=== PATIENT | female | born 1970 | race Caucasian/White ===

== ENCOUNTER 2019-08-05 15:19 | Outpatient (CLI) | payer BC, SELFPAY ==
--- NOTE | ~2019-08-05 | MM_ITS ---
EXAMINATION: MM scrn [facility] implant BI w vickie HISTORY: Screening mammogram TECHNIQUE: Craniocaudal and mediolateral oblique 3-D tomosynthesis images with implant displacement a nd synthetic 2-D images were generated. Craniocaudal and mediolateral oblique views of the breasts wi thout implant displacement were obtained using full field digital mammography. CAD analysis was submi tted and interpreted. COMPARISON: 06/01/2018, 04/18/2016, 02/13/2015 bilateral implant digital screening mammogram examination s BREAST PARENCHYMAL COMPOSITION: There are scattered areas of fibroglandular density. FINDINGS: Bilateral deflated implants since 06/01/2018. Focal area of fat necrosis in the mid to lower inner right breast. There is no evidence of suspicious mass, calcification, or architectural distorti on to suggest malignancy in either breast. There has been no suspicious interval change. IMPRESSION: 1. No mammographic evidence of malignancy. 2. Recommend routine screening mammography in one year. BI-RADS Category 2: Benign finding(s). Reviewed, dictated and finalized at location A.
== END 2019-08-05 15:20 | disposition home or self-care (01) ==
PROVIDERS: PCP Family Medicine; Visit Provider Surgery Plastic and Reconstructive Surgery
DX: Z12.31 Encounter for screening mammogram for malignant neoplasm of breast (principal)
CPT/HCPCS: 77063; 77067

== ENCOUNTER 2019-09-01 12:11 | Outpatient (CLI) | payer OTHER, SELFPAY ==
[2019-09-01 13:14] LABS: Blood Urea Nitrogen 11 mg/dL (7-17); Calcium 9.6 mg/dL (8.4-10.2); Carbon Dioxide 30 mmol/L (22-30); Chloride 100 mmol/L (98-107); Estimated Glomerular Filt Rate > 60; Glucose 104 mg/dL (65-105); Potassium 3.4 mmol/L (3.4-5.0); Sodium 138 mmol/L (137-145)
== END 2019-09-01 12:12 | disposition home or self-care (01) ==
LOC: ANHSURGERY 12:15
PROVIDERS: Anesthesiology; PCP Family Medicine; Visit Provider Surgery Plastic and Reconstructive Surgery
DX: Z01.818 Encounter for other preprocedural examination (principal); Z51.81 Encounter for therapeutic drug level monitoring
CPT/HCPCS: 36415; 80048

== ENCOUNTER 2019-09-10 01:15 | Outpatient (CLI) | payer OTHER, SELFPAY ==
[2019-09-10 16:42] LABS: SARS-CoV-2 RNA PCR Negative
== END 2019-09-10 01:16 | disposition home or self-care (01) ==
LOC: ANHCOVIDDT 01:15
PROVIDERS: PCP Family Medicine; Visit Provider Surgery Plastic and Reconstructive Surgery
DX: Z01.812 Encounter for preprocedural laboratory examination (principal); Z20.828 Contact with and (suspected) exposure to other viral communicable diseases
CPT/HCPCS: 87635; C9803; U0003

== ENCOUNTER 2019-09-13 01:08 | Day surgery (SDC) | payer OTHER, SELFPAY ==
[2019-08-30 15:08] VITALS: BMI 29.1
[2019-09-13] VITALS (9 sets, daily range): BP systolic 96–143; BP diastolic 54–78; PULSE 68–92; RESP 14–20; TEMP 36.3–36.9; O2SAT 97–100
--- NOTE | 2019-09-13 00:08 | WPDANESEPP ---
Anes - Eval Pre Procedure Procedure: Operation Date: 09/13/19 07:30 Proposed Procedures p Bilateral Breast Implant Removal With Capsulectomy - Bahman Wyatt MD s Bilateral Breast Fat Grafting - Bahman Wyatt MD Date/Time: 09/13/19 00:08 Pre Op Diagnosis: hx breast augmentation Patient Data Age: 49 Gender: F Height: 5 ft 5 in Weight: 79.38 kg Allergies Allergy/AdvReac Type Severity Reaction Status Date / Time ciprofloxacin Allergy Mild RASH Verified 09/06/19 08:33 adhesive Allergy Unknown BLISTERS Verified 09/06/19 08:33 miconazole Allergy Unknown SKIN Verified 09/06/19 08:33 BURNING sulfamethizole Allergy Unknown Rash Verified 09/06/19 08:33 trimethoprim Allergy Unknown Rash Verified 09/06/19 08:33 MONOSTAT Allergy Intermediate Skin burn, Uncoded 09/06/19 08:33 rash. Home Medications Medication Instructions Recorded Confirmed Type furosemide 40 mg tablet 40 mg PO QAM #30 tablet 06/23/19 08/30/19 Rx zolpidem 5 mg tablet 5 mg PO DAILY #30 tablet 06/23/19 08/30/19 Rx tramadol 50 mg tablet 50 mg PO Q6H PRN #60 tablet 08/08/19 08/30/19 Rx estradiol 1 mg PO DAILY 08/30/19 08/30/19 History docusate sodium 100 mg capsule 100 mg PO DAILY #14 cap 09/06/19 Rx ondansetron HCl 4 mg tablet 4 mg PO Q8H #28 tablet 09/06/19 Rx oxycodone-acetaminophen 5 mg-325 1 tablet PO Q6H PRN #15 tablet 09/07/19 09/07/19 Rx mg tablet Patient hx anesthesia problems: none Family hx anesthesia problems: none PMFSH Past Medical History Medical History (Updated 09/13/19 @ 00:11 by Praveen Jose CRNA) Abnormal uterine bleeding (AUB) Burning with urination Encounter for cosmetic surgery Fibroid uterus MVP (mitral valve prolapse) Surgical History Surgical History H/O hysterectomy with oophorectomy History of breast augmentation Status post lumbar surgery Family History Family History Other Diabetes mellitus Family history of alcoholism Family history of arthritis Family history of cardiovascular disease Hypertension Social History Social History Smoking end date: 03/30/00 Alcohol intake: current Exam Day of Procedure 09/13/19 00:08 Patient weight: normal
--- NOTE | 2019-09-13 06:35 | WPDANESEFPP ---
Anes - Eval Final PreProcedure Day of Procedure 09/13/19 06:35 Patient weight: overweight Heart: regular rate and rhythm Lungs: clear to auscultation Airway: Mallampati scale class II Neurological: alert and oriented Last oral intake: >/= 8 hours ASA classification: II Emergent: no Anesthetic plan: proceed Anesthesia type and monitoring: general LMA and standard monitoring Informed Consent: The patient's anesthetic plan and its attendant risks and benefits were discussed with the patient/family/POA. Questions were solicited and answers provided to the satisfaction of the patient/family/POA.
[2019-09-13] MEDS: LACTATED RINGERS 1,000 ML 30 ML IV CONT ×2 (06:40→09:51)
[2019-09-13 06:44] LABS: Urine Cotinine NEGATIVE
--- NOTE | 2019-09-13 06:55 | WPDHPUPDATE1 ---
History and Physical Update Update Date/Time: 09/13/19 06:55 History and Physical has been reviewed, including an updated exam of the patient. There are NO changes in the patient's condition. She would like to send the implant capsule. She understands there will be pathology / facility charges for this at her expense. Further she understands I cannot gurantee total capsule removal. Risks, benefits, and alternatives have been discussed and questions answered. Patient agrees to proceed with procedure.
[2019-09-13] MEDS: ceFAZolin 2 GM/D5W 50 ML 2 GM/50 ML BAG IVPB (07:39)
[2019-09-13] MEDS: LIDO 1%/EPINEPHRINE 1:100,000 20 ML VIAL 80 ML INFILTRATE (08:43)
--- NOTE | 2019-09-13 09:56 | PM.PROC ---
Procedure Note - Detailed Date of procedure: 09/13/19 Pre-op diagnosis: hx breast augmentation Post-op diagnosis: same Procedure performed: Bilateral breast implant removal, capsulectomy, fat grafting bilateral breast Description of procedure: Patient was marked in the preoperative holding area with her verification. She was taken to the operating room placed supine on the operating room table. Anesthesia was provided by anesthesiology and prepped and draped in a standard sterile fashion. Surgical time-out was taken. I used a 18 gauge to make puncture wounds for the planned tumescent. I tumesced the abdomen and flanks as had been determined preoperatively. Using a 3 mm multi hole suction cannula into a gravity separation device I completed suction lipectomy for around 600 cc. This was in multiple planes and passes to ensure good contour. I then proceeded with applying for separation of the adipose tissue. Once I had good separation I took the central portion discarding the inferior and superior aspect. This placed in 10 cc syringes and using 3.1 mm cannula I injected bilateral breast. This was through 18 gauge puncture sites. Initially placed around half the volume prior to removing the implants and after that I did placed remaining volume when she was sitting to verify contour. I had also done a field block of the breast using 1% lidocaine and 0.25% Marcaine with epinephrine bilateral. This was a total of 60 cc. A 15 blade used to excise the central portion of the IMF scar. I continued to the capsules identified and I dissected around nearly the entire capsule except for adherent spots to prevent injury the pectoralis major. This was prepectoral. I then removed this capsule. This was a textured implant removed. I saw nothing abnormal during this. At this point I placed the remainder of the fat in a sitting position. This was a total volume of 120 cc of adipose tissue per breast in multiple planes and passes making sure good contour. I irrigated with 3 L saline on TUR tubing total. I verified strict hemostasis. I placed 15 William drains bilateral which were sutured into place with 3-0 nylon. She had a possible allergy to Vicryl in the past and as such we closed in multiple layers using 3-0 Monocryl followed by running subcuticular 4-0 Monocryl and tissue glue. She tolerated the procedure well. She was taken to PACU without difficulty. All instrument sponge counts were correct at the end of the case. Anesthesia: GLMA Surgeon: Bahman Wyatt MD Estimated blood loss (mL): 10 Drains: Yes ( bilateral 15 William) Packing: No Pathology: yes ( bilateral breast capsules) Complications: No immediate complications Condition: stable Disposition: PACU Findings: Bilateral textured implants. I completed removal of the majority of the capsule bilateral. This was sent to pathology. Nothing abnormal identified. Suction lipectomy was completed from the abdomen flanks. These gravity separation and I was able to inject 120 cc of good adipose tissue to bilateral breast.
[2019-09-13] MEDS: ONDANSETRON INJ 4 MG/2 ML VIAL IV PUSH (11:24)
== END 2019-09-13 12:12 | disposition home or self-care (01) ==
PROVIDERS: PCP Family Medicine; Visit Provider Surgery Plastic and Reconstructive Surgery
PROC: 0HPT0JZ Removal of Synthetic Substitute from Right Breast, Open Approach (ICD-10-PCS; CPT 19371; principal; 2019-09-13 07:30)
PROC: (CPT 15769; 2019-09-13 07:30)
DX: Z45.812 Encounter for adjustment or removal of left breast implant (principal); Z45.811 Encounter for adjustment or removal of right breast implant; I34.1 Nonrheumatic mitral (valve) prolapse
CPT/HCPCS: 19371; 15771; 15772 ×11; 36415; 80307; 88304; 88305; A9270; J0171; J0690; J1100; J2250; J2405; J2704; J3010; J7120

== ENCOUNTER → 2019-12-19 11:18 | Outpatient (CLI) | payer BC, SELFPAY ==
--- NOTE | ~2019-12-19 | US_ITS ---
EXAMINATION: US thyroid EXAM DATE: 12/19/2019 11:37 INDICATION: Thyroid nodules. TECHNIQUE: Multiple grayscale and Doppler images of the thyroid were obtained (by a technologist who performed the scan) and subsequently reviewed. Individual nodules and recommendations may be reporte d in accordance with TI-RADS system as designated by the 2017 ACR White Paper TI-RADS committee. Comp leticia is made to prior examination from 09/03/2016. FINDINGS: The right thyroid lobe measures 4.9 x 1.5 x 1.4 cm, the left measuring 5.3 x 1.6 x 1.4 cm. Mildly het erogeneous thyroid echogenicity. Several thyroid nodules, largest in the left thyroid lobe superior p ole measuring 1.4 x 0.8 x 1.2 centimeters, solid (2 points), isoechoic (1 point), wider than tall, sm ooth margin, without echogenic foci, category TR3 for this nodule. This nodule measured 1.2 x 1.1 x 1 .1 cm in 2017, within technologist variation for acquisition. The others are 3 mm or less in size, no t clinically significant. IMPRESSION: Mild thyromegaly. Stable nodules. Return to clinical follow-up and if additional palpable abnormality develops a repeat scan. Reviewed, dictated and finalized at location B.
== END ==
PROVIDERS: PCP Physician Assistant Medical; Visit Provider Physician Assistant Medical
DX: E07.89 Other specified disorders of thyroid (principal); E04.9 Nontoxic goiter, unspecified
CPT/HCPCS: 76536

== ENCOUNTER → 2020-08-30 07:11 | Outpatient (CLI) | payer BC, SELFPAY ==
--- NOTE | ~2020-08-30 | MM_ITS ---
EXAMINATION: MM screening [facility] BI w vickie HISTORY: Screening TECHNIQUE: Craniocaudal and mediolateral oblique 3-D tomosynthesis images were obtained and synthetic 2-D images were generated. CAD analysis was submitted and interpreted. COMPARISON: Comparison to multiple prior studies sequentially, with oldest reviewed study dated 05/2013. BREAST PARENCHYMAL COMPOSITION: There are scattered areas of fibroglandular density. FINDINGS: There is no evidence of suspicious mass, calcification, or architectural distortion to sugg est malignancy in either breast. There has been no suspicious interval change. IMPRESSION: 1. No mammographic evidence of malignancy. 2. Recommend routine screening mammography in one year. BI-RADS Category 1: Negative Reviewed, dictated and finalized at location A.
== END ==
PROVIDERS: Visit Provider Obstetrics & Gynecology
DX: Z12.31 Encounter for screening mammogram for malignant neoplasm of breast (principal)
CPT/HCPCS: 77063; 77067

== ENCOUNTER → 2020-09-17 11:58 | Outpatient (CLI) | payer BC, SELFPAY ==
--- NOTE | ~2020-09-17 | XR_ITS ---
XR foot LT 2V DATE: 09/17/2020 12:09 INDICATION: Left foot pain TECHNIQUE: AP and lateral views COMPARISON: None FINDINGS: There is slight plantar and mild posterior calcaneal enthesopathy. Mild joint space narrowing at the first metatarsophalangeal joint. No fracture, dislocation, periosteal reaction or bone destruction. IMPRESSION: Calcaneal enthesopathy Mild first metatarsophalangeal joint joint space narrowing Reviewed, dictated and finalized at location A.
== END ==
PROVIDERS: PCP Physician Assistant Medical; Visit Provider Physician Assistant Medical
DX: M79.672 Pain in left foot (principal); M77.32 Calcaneal spur, left foot
CPT/HCPCS: 73620

== ENCOUNTER → 2020-10-11 15:06 | Outpatient (CLI) | payer BC, SELFPAY ==
--- NOTE | ~2020-10-11 | XR_ITS ---
EXAMINATION: XR elbow LT min 3V DATE: 10/11/2020 15:41 INDICATION: Left elbow injury. TECHNIQUE: 4 views of left elbow were obtained. COMPARISON: None. FINDINGS: Bone alignment is normal. No fracture. There is mild elbow joint osteoarthritis. No elbow j oint effusion. IMPRESSION: 1. Mild elbow joint osteoarthritis. Reviewed, dictated and finalized at location A.
--- NOTE | ~2020-10-11 | XR_ITS ---
EXAMINATION: XR forearm LT 2V DATE: 10/11/2020 15:41 INDICATION: Left elbow injury. TECHNIQUE: 2 views of left forearm were obtained. COMPARISON: None. FINDINGS: Bone alignment is normal. No fracture. Joint spaces are well maintained. There is no elbow joint effusion. IMPRESSION: 1. Normal left forearm. Reviewed, dictated and finalized at location A. IMPRESSION: 1. Normal left forearm.
== END ==
PROVIDERS: PCP Family Medicine; Visit Provider Pediatrics
DX: M19.022 Primary osteoarthritis, left elbow (principal); M79.632 Pain in left forearm; W01.0XXA Fall on same level from slipping, tripping and stumbling without subsequent striking against object, initial encounter
CPT/HCPCS: 73080; 73090

== ENCOUNTER → 2021-11-07 07:06 | Outpatient (CLI) | payer BC, SELFPAY ==
--- NOTE | ~2021-11-07 | MM_ITS ---
EXAMINATION: MM screening [facility] BI w vickie HISTORY: Screening mammogram TECHNIQUE: Craniocaudal and mediolateral oblique 3-D tomosynthesis images were obtained and synthetic 2-D images were generated. CAD analysis was submitted and interpreted. COMPARISON: 08/30/2020, 08/05/2019, 06/01/2018 BREAST PARENCHYMAL COMPOSITION: There are scattered areas of fibroglandular density. FINDINGS: Oil cysts are noted bilaterally. There is no suspicious mass, calcification, or architectur al distortion to suggest malignancy in either breast. There has been no suspicious interval change. IMPRESSION: 1. No mammographic evidence of malignancy. 2. Recommend routine screening mammography in one year. BI-RADS Category 2: Benign finding(s). Reviewed, dictated and finalized at location A.
== END ==
PROVIDERS: PCP Physician Assistant Medical; Visit Provider Physician Assistant Medical
DX: Z12.31 Encounter for screening mammogram for malignant neoplasm of breast (principal)
CPT/HCPCS: 77063; 77067

== ENCOUNTER → 2021-11-28 11:40 | Outpatient (CLI) | payer BC, SELFPAY ==
--- NOTE | ~2021-11-28 | US_ITS ---
EXAMINATION: US thyroid DATE: 11/28/2021 11:58 INDICATION: Nontoxic goiter, unspecified. TECHNIQUE: Multiple ultrasound images of the thyroid were obtained. COMPARISON: Thyroid ultrasound 12/19/2019, 09/03/16 FINDINGS: The right thyroid lobe measures 5.8 x 1.8 x 1.6 cm. The left thyroid lobe measures 5.6 x 1.7 x 1.7 c m. The thyroid demonstrates heterogeneous hypoechogenicity. Vascularity is increased. IMPRESSION: 1. Heterogeneous, hypervascular thyroid, likely chronic lymphocytic (Sam) thyroiditis. Reviewed, dictated and finalized at location A.
== END ==
PROVIDERS: PCP Physician Assistant Medical; Visit Provider Physician Assistant Medical
DX: E04.9 Nontoxic goiter, unspecified (principal)
CPT/HCPCS: 76536

== ENCOUNTER 2024-04-06 06:12 | Day surgery (SDC) | payer OTHER, SELFPAY ==
[2024-03-17 14:43] VITALS: BMI 23.3
[2024-04-06] VITALS (9 sets, daily range): BP systolic 107–120; BP diastolic 58–70; PULSE 60–85; RESP 14–20; TEMP 36.2–37.3; O2SAT 100; BMI 24.7
[2024-04-06] MEDS: LACTATED RINGERS 1,000 ML 30 ML IV CONT ×2 (08:00→11:40)
--- NOTE | 2024-04-06 08:43 | WPDHPUPDATE1 ---
History and Physical Update Update Date/Time: 04/06/24 08:43 History and Physical has been reviewed, including an updated exam of the patient. Correction of H&P. Her labia minora tear is on the left and she is concerned of asymmetry with the repair and would like to proceed bilateral. Will proceed with bilateral augmentation mammaplasty and bilateral labioplasty. She and her state to proceed at my discretion if any concerns. Risks, benefits, and alternatives have been discussed and questions answered. Patient agrees to proceed with procedure.
--- NOTE | 2024-04-06 08:45 | SUR.PREOP ---
500CC IVF BOLUS INFUSING PER ORDER. FEMALE STAFF IN ROOM WHILE DR CARRANZA MARKED PT. PT'S SPOUSE ALSO PRESENT PER PT REQUEST. PT AND DR DISCUSSED PROCEDURE. CHANGED TO BILAT LABIAPLASTY
--- NOTE | 2024-04-06 08:46 | P.PNAN_ITS ---
Anes - Initial Pre Proc Eval Procedure: Operation Date: 04/06/24 08:45 Proposed Procedures p Bilateral Breast Augmentation Mammoplasty - Bahman Wyatt MD s Right Labiaplasty - Bahman Wyatt MD Date/Time: 04/06/24 08:46 Surgeon: Bahman Wyatt MD Pre Op Diagnosis: Micromastia, Hypertrophy of Labia Minora Patient Data Age: 54 Gender: F Height: 1.63 m Weight: 65.3 kg Last Vital Signs Temp 37.3 C 04/06/24 08:09 Pulse 60 04/06/24 08:09 Resp 16 04/06/24 08:09 BP 107/69 04/06/24 08:09 Pulse Ox 100 04/06/24 08:09 O2 Del Method Room Air 04/06/24 08:09 Allergies Allergy/AdvReac Type Severity Reaction Status Date / Time ciprofloxacin Allergy Mild RASH Verified 04/06/24 07:47 tioconazole (From Monistat 1 Allergy Mild Rash Verified 04/06/24 07:47 (tioconazole)) adhesive Allergy Unknown BLISTERS Verified 04/06/24 07:47 miconazole Allergy Unknown SKIN Verified 04/06/24 07:47 BURNING sulfamethizole Allergy Unknown Rash Verified 04/06/24 07:47 trimethoprim Allergy Unknown Rash Verified 04/06/24 07:47 Home Medications ?Medication ?Instructions ?Recorded ?Confirmed ?Type ergocalciferol (vitamin D2) 1,250 50,000 unit PO MONTHLY 10/20/23 04/06/24 History mcg (50,000 unit) capsule (Vitamin D2) estradiol 1.25 mg/1.25 gram (0.1 1.25 mg topical DAILY 10/20/23 04/06/24 History %) transdermal gel packet testosterone cypionate 200 mg/mL 200 mg subcut MONTHLY 10/20/23 03/17/24 History intramuscular oil tirzepatide 5 mg/0.5 mL 5 mg (0.5 mL) subcut WEEKLY #2 mL 01/06/24 03/17/24 Rx subcutaneous pen injector (Micunstephane) zolpidem 5 mg tablet 5 mg PO DAILY #30 tabs 01/12/24 04/06/24 Rx tramadol 50 mg tablet 50 mg PO Q6H PRN pain #60 tabs 03/09/24 04/06/24 Rx Patient hx anesthesia problems: none Family hx anesthesia problems: none Results Review: All pre-operative results and documents have been reviewed as part of the pre- operative evaluation. [facility] Past Medical History Medical History (Updated 01/29/24 @ 09:17 by Shara Acuna APRN) Dysuria BMI 27.0-27.9,adult BMI 28.0-28.9,adult BMI 29.0-29.9,adult Fibroid uterus Abnormal uterine bleeding (AUB) MVP (mitral valve prolapse) Encounter for cosmetic surgery Burning with urination Surgical History Surgical History Status post lumbar surgery H/O hysterectomy with oophorectomy History of breast augmentation Family History Family History Father Hypertension Cancer Mother No problems noted. Sibling Other Diabetes mellitus Family history of alcoholism Family history of arthritis Family history of cardiovascular disease Social History Social History Smoking status: Former smoker Tobacco type: cigarettes Second hand tobacco smoke exposure: No Smoking end date: 03/30/00 Alcohol intake: current Substance use: never Substance use type: does not use Lack of Transportation: No Lack of Food: Never True Current Housing: I Have Housing Concerned About Future Housing: No Difficulty Paying Gas/Electric Bills: No Difficulty Paying for Meds: No Currently Unemployed: No Education: Associate Degree Difficulty w/ Childcare or Family Care: No Living arrangements: with family Occupation/Education: occupation 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 Informed Consent: The patient's anesthetic plan and its attendant risks and benefits were discussed with the patient/family/POA. Questions were solicited and answers provided to the satisfaction of the patient/family/POA.
--- NOTE | 2024-04-06 08:50 | W.PM.PROC2 ---
Procedure Note - Detailed Date of Procedure 04/06/24 Pre-op Diagnosis Micromastia, Hypertrophy of Labia Minora Post-op Diagnosis Same Procedure Performed 1. Bilateral augmentation mammaplasty 2. Bilateral labioplasty (left labia minora repair) Surgeon Bamhan Wyatt MD Anesthesia General Findings Bilateral Steve Cedeno SoftTouch 400cc Subfascial Right - REF# SSLP-400 SN [id number] Left - REF# [id number] SN [id number] Description of Procedure She is here today for bilateral breast augmentation and labioplasty. She has a left labia minora tear and would like to repair; however, she has had significant concern of asymmetry and would like to complete a symmetry procedure on the right. Previously and again today the risks, benefits, alternatives were discussed in extensive detail. I wanted her to be very realistic about the risks involved as well as expectations. We discussed aftercare and what to monitor for. Made sure answered all of her questions to her satisfaction today and consent was obtained. Marked in the preoperative holding area with their verification. The patient was taken to the operating room placed supine on the operating table. Anesthesia was provided by anesthesiology. A surgical time-out was taken. Breast We cleansed the skin and 1% lidocaine and 0.25% Marcaine with epinephrine was used anesthetize as a field block. She was prepped and draped in a standard sterile fashion. Tegaderm nipple Lees were placed. A 15 blade used to make an incision along the inframammary fold. Dissection was continued at 45 degree angle until the chest wall as identified. I elevated a subfascial pocket (which was intact) in the appropriate dimensions based on our preoperative planning for the implant. I then copiously irrigated with saline solution and verified a strict hemostasis. Next the use a triple antibiotic and Betadine containing solution to irrigate the pocket. I washed my gloves with the triple antibiotic and Betadine solution. We washed the implant immediately upon opening it with this solution and only opened it when we needed it. I used implant funnel and no-touch technique. The implant was introduced into the pocket using the funnel. Having verified positioning of the implant this was closed using 2-0 PDS followed by 3-0 Monocryl in a running subcuticular 4-0 Monocryl followed by tissue glue. Labioplasty She was placed in stirrups and prepped and draped in a standard sterile fashion. 1% lidocaine and 0.25% Marcaine with epi were used to anesthetize. I sharply excised the tear and some excess labia minora on the left labia and verified strict hemostasis. I closed with 3-0 Monocryl and 4-0 Chromic. On the right I excised a wedge to match the contralateral side (there was significant anatomy variation between sides). Repaired in the same manner. Fluffs and surgical bra were placed. Patient was awoke and taken to PACU without difficulty. All instrument sponge counts were correct at the end of the case. Estimated Blood Loss 30 Drains No Packing No Pathology None sent Complications No immediate complications Condition Stable Disposition PACU
[2024-04-06] MEDS: ceFAZolin SODIUM 2 GM/20 ML SW SYRINGE IV PUSH (09:10)
[2024-04-06] MEDS: LIDO 1%/EPINEPHRINE 1:100,000 10 ML VIAL 30 ML INFILTRATE (09:16)
[2024-04-06] MEDS: BUPivacaine HCL 0.25% PF 30 ML VIAL INFILTRATE (09:16)
[2024-04-06] MEDS: TRANEXAMIC ACID 1,000 MG/10 ML AMPUL 1000 MG IV PUSH (09:50)
[2024-04-06] MEDS: NACL 0.9% IRRIG POUR BOTTLE 900 ML, GENTAMICIN SULFATE INJ 160 MG, ceFAZolin 2 GM, POVI... IRRIGATION (09:51)
[2024-04-06] MEDS: BUPIVACAINE/EPINEPHRINE 0.25% 10 ML VIAL INFILTRATE (10:24)
[2024-04-06] MEDS: LIDOCAINE 1% LOCAL INJ 10 ML VIAL INFILTRATE (10:38)
[2024-04-06] MEDS: fentaNYL CITRATE INJ (*CRX) 100 MCG/2 ML VIAL 25 MCG IV PUSH ×8 (11:22→11:53)
--- NOTE | 2024-04-06 11:58 | WPDANESPN ---
Anes - Prog Note Post-Op Date/Time: 04/06/24 11:58 Cardiovascular status: normal Respiratory status: normal Airway patency: baseline Mental status: baseline Post-Op hydration status: normal Vital Signs: Last Vital Signs Temp 36.2 C L 04/06/24 10:52 Pulse 79 04/06/24 11:45 Resp 18 04/06/24 11:45 BP 114/65 04/06/24 11:45 Pulse Ox 100 04/06/24 11:45 O2 Del Method Room Air 04/06/24 11:45 O2 Flow Rate 8 04/06/24 11:15 Pain Score (VAS): 2 I/O: Intake & Output 04/05/24 04/06/24 04/06/24 23:59 07:59 15:59 Intake Total 0 Balance 0 Post-procedural complaints: none Patient Feedback: Patient satisfied with anesthetic care. Other Findings: Patient vital signs back to baseline. Patient denies nausea and vomiting. Patient's pain under control. Patient OK for discharge.
[2024-04-06] MEDS: oxyCODONE HCL (*CRX) 5 MG TAB IR PO (12:15)
== END 2024-04-06 12:52 ==
PROVIDERS: PCP Family Medicine; Visit Provider Surgery Plastic and Reconstructive Surgery
PROC: (CPT 19325; principal; 2024-04-06 08:45)
PROC: (CPT 19325; 2024-04-06 08:45)
DX: Z41.1 Encounter for cosmetic surgery (principal); N64.82 Hypoplasia of breast; N90.60 Unspecified hypertrophy of vulva
CPT/HCPCS: 19325; 56620

== ENCOUNTER 2024-04-19 20:26 | Day surgery (SDC) | payer BC, SELFPAY ==
[2024-04-19] VITALS (7 sets, daily range): BP systolic 98–115; BP diastolic 50–67; PULSE 70–86; RESP 14–19; TEMP 36.4; O2SAT 100
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
--- NOTE | 2024-04-19 20:40 | P.HP_ITS ---
H&P: HPI History of Present Illness Date/Time: 04/19/24 20:40 Chief Complaint: Breast pain Narrative: She underwent augmentation mastopexy on 04/06/2024. Postoperatively has done well; however, this evening states she began to develop left breast pain and swelling. She wasn't doing anything at the time. No specific events. No fevers or chills. No nausea or vomiting. No shortness of breast. No calf tenderenss. Her last mean was at 11:30am, 5:30pm coffee. They live approximally 1 hour away and came immediately for evaluation. Review of Systems Review of Systems: All systems reviewed & are unremarkable except as noted in HPI and below PMFSH Past Medical History Medical History Breast hematoma Anxiety Thyroid enlargement Hyperlipidemia Dysuria BMI 27.0-27.9,adult BMI 28.0-28.9,adult BMI 29.0-29.9,adult Fibroid uterus Abnormal uterine bleeding (AUB) MVP (mitral valve prolapse) Encounter for cosmetic surgery Burning with urination Surgical History Surgical History Status post lumbar surgery H/O hysterectomy with oophorectomy History of breast augmentation Family History Family History Father Hypertension Cancer Mother No problems noted. Sibling Other Diabetes mellitus Family history of alcoholism Family history of arthritis Family history of cardiovascular disease Social History Social History Smoking status: Former smoker Tobacco type: cigarettes Second hand tobacco smoke exposure: No Smoking end date: 03/30/00 Alcohol intake: current Substance use: never Substance use type: does not use Lack of Transportation: No Lack of Food: Never True Current Housing: I Have Housing Concerned About Future Housing: No Difficulty Paying Gas/Electric Bills: No Difficulty Paying for Meds: No Currently Unemployed: No Education: Associate Degree Difficulty w/ Childcare or Family Care: No Living arrangements: with family Occupation/Education: occupation 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 Gender identity (if verbalized by the patient): Female Spiritual care concerns: No Meds Home Medications and Allergies Home Medications ?Medication ?Instructions ?Recorded ?Confirmed ?Type ergocalciferol (vitamin D2) 1,250 50,000 unit PO MONTHLY 10/20/23 04/06/24 History mcg (50,000 unit) capsule (Vitamin D2) estradiol 1.25 mg/1.25 gram (0.1 1.25 mg topical DAILY 10/20/23 04/06/24 History %) transdermal gel packet testosterone cypionate 200 mg/mL 200 mg subcut MONTHLY 10/20/23 03/17/24 History intramuscular oil tirzepatide 5 mg/0.5 mL 5 mg (0.5 mL) subcut WEEKLY #2 mL 01/06/24 03/17/24 Rx subcutaneous pen injector (Beverley) tramadol 50 mg tablet 50 mg PO Q6H PRN pain #60 tabs 03/09/24 04/06/24 Rx zolpidem 5 mg tablet 5 mg PO DAILY #30 tabs 04/07/24 Rx Allergies Allergy/AdvReac Type Severity Reaction Status Date / Time ciprofloxacin Allergy Mild RASH Verified 04/06/24 07:47 tioconazole (From Monistat 1 Allergy Mild Rash Verified 04/06/24 07:47 (tioconazole)) adhesive Allergy Unknown BLISTERS Verified 04/06/24 07:47 miconazole Allergy Unknown SKIN Verified 04/06/24 07:47 BURNING sulfamethizole Allergy Unknown Rash Verified 04/06/24 07:47 trimethoprim Allergy Unknown Rash Verified 04/06/24 07:47 Exam Narrative: Alert & Oriented NOD Respiratory unlabored Right breast is healing well. No signs of infection. No hematoma. No seroma. Good color and capillary refill. Left breast with significant swelling / fullness. No calf tenderness. Negative Jewel's Assessment and Plan Assessment and plan (1) History of breast augmentation: Code(s): Z98.82 - Breast implant status Status: Acute Assessment and Plan: She appears to have a left breast hematoma after previous augmentation mastopexy. Would like to proceed with left breast washout with possible implant exchange. Risks, benefits, alternatives were discussed in extensive detail. I want to be very realistic about the risks involved as well as expectations. Reviewed consent in detail. Discussed aftercare and what to monitor for. Made sure I answered all questions answered to satisfaction and consent obtained. (2) History of mastopexy: Code(s): Z98.890 - Other specified postprocedural states Status: Acute
--- NOTE | 2024-04-19 20:52 | WPDHPUPDATE1 ---
History and Physical Update Update Date/Time: 04/19/24 20:52 History and Physical has been reviewed, including an updated exam of the patient. There are NO changes in the patient's condition. Risks, benefits, and alternatives have been discussed and questions answered. Patient agrees to proceed with procedure.
[2024-04-19] MEDS: LIDO 1%/EPINEPHRINE 1:100,000 50 ML VIAL 15 ML INFILTRATE (20:53)
[2024-04-19] MEDS: ceFAZolin SODIUM 1 GM VIAL 2 GM IV PUSH (20:53)
[2024-04-19] MEDS: BUPivacaine HCL 0.25% PF 30 ML VIAL INFILTRATE (20:53)
--- NOTE | 2024-04-19 20:54 | W.PM.PROC2 ---
Procedure Note - Detailed Date of Procedure 04/19/24 Pre-op Diagnosis Hematoma Washout of Breast Post-op Diagnosis Same Procedure Performed Left breast washout / implant exchange Surgeon Bahman Wyatt MD Anesthesia General Findings Left breast hematoma. 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 Estimated 450cc old blood Removed previous left implant. Replaced with new implant. Left: Steve Cedeno SoftTouch 400cc Ref# [id number] Description of Procedure Preoperatively the risks, benefits, alternatives were discussed in extensive detail. I wanted to be very realistic about the risks involved as well as expectations. I was clear about how we could actually make her worse. Answered all questions to satisfaction. Voiced a clear understanding. Consent obtained. She was taken the operating room placed supine on the operating room table. Anesthesia provided by anesthesiology and prepped and draped in a standard sterile fashion. Surgical time-out was taken. 1% lidocaine and 0.25% Marcaine with epinephrine was used to provide a field block. Tegaderm nipple merritt were placed. Fifteen blade used to excise the previous left IMF scars. Dissection was continued until the implant was identified and removed. I then copiously irrigated with 3 L of saline solution on TUR tubing. Verified strict hemostasis. I then irrigated with Phase One containing solution. Using a no-touch technique and a Wright funnel the implant was introduced into the pocket. This was closed with 2-0 PDS followed by 3-0 Monocryl and a running subcuticular 4-0 Monocryl followed by tissue glue. Dressings were placed. She was woken taken to the PACU without difficulty. All instrument sponge counts were correct at the end of the case. Estimated Blood Loss 20 Drains No Packing No Pathology None sent Complications No immediate complications Condition Stable Disposition PACU (Will monitor in PACU prior to discharge.)
[2024-04-19] MEDS: LACTATED RINGERS 1,000 ML 30 ML IV CONT (21:48)
[2024-04-19] MEDS: fentaNYL CITRATE INJ (*CRX) 100 MCG/2 ML VIAL 25 MCG IV PUSH ×2 (22:13→22:30)
[2024-04-19] MEDS: oxyCODONE HCL (*CRX) 5 MG TAB IR PO (22:58)
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
--- OUTSIDE RECORDS SUMMARY | 2024-04-21 20:25 | XMS_ITS | Referral Summary ---
Author Organization [facility] Address [address] [place] [address] Care Team Providers Care Executive Personal Assistant Name Role Phone Franck Cuadra MD Primary Care Provider [phone] Ellie Maloney FINANCIAL ANALYSIS CONSULTANT-JOURNEYMAN WELDER Unavailable [phone] Source Comments [facility],non-owned Affiliates and Associated Physician Practices is amultiple site organization consisting of ambulatory clinics and hospital sitesin [place], [place], [place] and [place]. This disclosure is being madepursuant to the Care Everywhere program and may not contain all information available regarding this patient. Last updated 17.[facility] Encounters Date Type Department Care Team Description 03/31/2024 Orders Only [facility] - Urology [address], [address] [place] [address] Ellie Maloney, FINANCIAL ANALYSIS CONSULTANT-JOURNEYMAN WELDER 03/29/2024 Refill [facility] - Urology [address] [place] [address] Ellie Maloney, FINANCIAL ANALYSIS CONSULTANT-JOURNEYMAN WELDER Refill Request 03/21/2024 Orders Only [facility] - Urology [address] [place] [address] Ellie Maloney, FINANCIAL ANALYSIS CONSULTANT-JOURNEYMAN WELDER Recurrent UTI 03/10/2024 Travel 03/10/2024 2:40 PM ELIGIBILITY SUPERVISOR Procedure visit [facility] Urology [address] [place] [address] Malinda Caba MD Recurrent UTI 02/29/2024 Orders Only [facility] - Urology [address] [place] [address] Ellie Maloney, FINANCIAL ANALYSIS CONSULTANT-JOURNEYMAN WELDER 02/29/2024 Orders Only [facility] Urology [address] [place] [address] Ellie Maloney, FINANCIAL ANALYSIS CONSULTANT-JOURNEYMAN WELDER Recurrent UTI 02/24/2024 Telephone [facility] Urolog [address] [place] [phone] Ellie Maloney, FINANCIAL ANALYSIS CONSULTANT-JOURNEYMAN WELDER Procedure Question 02/23/2024 Orders Only [facility] Urology [address] [place], [place] [phone] Ellie Maloney, FINANCIAL ANALYSIS CONSULTANT-JOURNEYMAN WELDER 02/19/2024 Telephone [facility] [address] [place] [phone] Ellie Maloney, FINANCIAL ANALYSIS CONSULTANT-JOURNEYMAN WELDER UTI 02/19/2024 Travel 02/19/2024 8:07 AM ELIGIBILITY SUPERVISOR - 02/19/2024 9:17 AM ELIGIBILITY SUPERVISOR Emergency ER at [facility] [address] [place] [address] Dalila Salazar MD Flank pain; Acute pyelonephritis Discharge Disposition: Home or Self Care 02/11/2024 Travel 02/11/2024 2:40 PM ELIGIBILITY SUPERVISOR Office Visit [facility] Urology [address] [place] [phone] Ellie Maloney, FINANCIAL ANALYSIS CONSULTANT-JOURNEYMAN WELDER Recurrent UTI (Primary Dx); History of nephrolithiasis; Left flank pain 02/09/2024 Telephone [facility]rology [address] [place] [address] Malinda Caba MD Update from Last 3 Months Allergies Active Allergy Reactions Criticality Noted Date [...] Active vitamin D, ergocalciferol, (Drisdol) 1.25 MG (62579 UT) capsule Take 1 (one) capsule by mouth every 7 days Juan Thursday Held since 05/23/23 05/12/2023 Active estradiol (ESTRACE VAGINAL) 0.1 MG/GM vaginal cream Insert 1 g into the vagina at bedtime Nightly for two weeks then twice per week (M, Th) 42.5 g 2 02/11/2024 Active tamsulosin [...] Date Primary osteoarthritis of right hip 06/03/2023 Social History Tobacco Use Types Packs/Day Years [...] Comments Blood Pressure 111/72 03/10/2024 3:16 PM ELIGIBILITY SUPERVISOR Pulse 74 03/10/2024 3:16 PM ELIGIBILITY SUPERVISOR Temperature 36.4 ??C (97.5 ??F) 02/19/2024 8:05 AM CS T Respiratory Rate 16 02/19/2024 8:05 AM ELIGIBILITY SUPERVISOR Oxygen Saturation 99% 03/10/2024 3:16 PM ELIGIBILITY SUPERVISOR Inhaled Oxygen Concentration - - Weight 64 kg (141 lb 3.2 oz) 03/10/2024 3:16 PM ELIGIBILITY SUPERVISOR Height 162.6 cm (5' 4 ) 03/10/2024 3:16 PM ELIGIBILITY SUPERVISOR Body Mass Index 24.24 03/10/2024 3:16 PM ELIGIBILITY SUPERVISOR Plan of Treatment Upcoming Encounters Date Type Department Care Team (Late st Contact Info) Description 06/07/2024 2:00 PM CDT Office Visit [facility] - Urology [address] [place] [address] Ellie Maloney, FINANCIAL ANALYSIS CONSULTANT-JOURNEYMAN WELDER [address] [place] [address] Medical Devices Implanted Type Area Vacuum Metalizer Operator Device Identifier Shelf Expiration Date Model / Serial / Lot Vistaseal 10 Ml Implanted:Qty: 1 on 06/03/2023 by Scott Malave DO at [facility] Right: Hip 10/02/2024 [id number] / / [id number] Shell Actb 48mm Hip 3 Screw Hl Clstr Implanted:Qty: 1 on 06/03/2023 by Scott Malave DO at [facility] Right: Hip [employer] 04/15/2028 702-04-48D / / [id number] Liner Actb Mdm D 38mm Cocr Hip 22.2mm Implanted:Qty: 1 on 06/03/2023 by Scott Malave DO at [facility] Right: Hip [employer] 06/16/2026 626-00-38D / / [id number] Screw 6.5mm 25mm Lopro Hex Trdnt Ii Strl Implanted:Qty: 1 on 06/03/2023 by Scott Malave DO at [facility] Right: Hip [employer] 06/10/2027 [id number] / / [id number] Ins Actb 38mm 22.2mm D Hip X3 Strl Lf Implanted:Qty: 1 on 06/03/2023 by Scott Malave DO at [facility] Right: Hip [employer] 12/03/2027 [id number] / / [id number] Head Fem +3mm Ofst Tpr 22mm Hip Prm Cocr Implanted:Qty: 1 on 06/03/2023 by Scott Malave DO at [facility] Right: Hip [employer] 02/06/2028 [id number] / / [id number] Impl Hip 36mm Nk Insg 4 Hpstm Hi Ofst Implanted:Qty: 1 on 06/03/2023 by Scott Malave, DO at [facility] Right: Hip [employer] 12/09/2027 [id number] / / [id number] Procedures Procedure Name Priority Date/Time Associated Diagnosis Comments CULTURE URINE Routine 03/29/2024 10:54 AM ELIGIBILITY SUPERVISOR Recurrent UTI URINALYSIS AUTO - POINT OF CARE (AMB) STL Routine 03/10/2024 3:15 PM ELIGIBILITY SUPERVISOR Recurrent UTI CULTURE URINE Routine 03/01/2024 1:38 PM ELIGIBILITY SUPERVISOR Recurrent UTI CT RENAL STONE STAT 02/19/2024 8:26 AM ELIGIBILITY SUPERVISOR Flank pain URINALYSIS REFLEX MICROSCOPIC REFLEX CULTURE STAT 02/19/2024 8:20 AM ELIGIBILITY SUPERVISOR LIPASE BLOOD STAT 02/19/2024 8:20 AM ELIGIBILITY SUPERVISOR COMPREHENSIVE METABOLIC PANEL STAT 02/19/2024 8:20 AM ELIGIBILITY SUPERVISOR CBC W AUTO DIFFERENTIAL STAT 02/19/2024 8:20 AM ELIGIBILITY SUPERVISOR CULTURE URINE STAT 02/19/2024 8:20 AM ELIGIBILITY SUPERVISOR URINALYSIS AUTO - POINT OF CARE (AMB) STL Routine 02/11/2024 3:06 PM ELIGIBILITY SUPERVISOR Recurrent UTI BLADDER SCAN - POINT OF CARE (AMB) Routine 02/11/2024 3:03 PM ELIGIBILITY SUPERVISOR Recurrent UTI CULTURE URINE Routine 02/09/2024 4:49 PM ELIGIBILITY SUPERVISOR Dysuria URINE CULTURE (EXTERNAL RESULT ENTRY) Routine 01/29/2024 10:53 AM CDT from Last 3 Months Results * CULTURE URINE (03/29/2024 10:54 AM ELIGIBILITY SUPERVISOR) Only the most recent of4 resultswithin the time period is included. Culture QUEST Comment: ??CULTURE, URINE, ROUTINE ?Micro Number: ?[id number] ??Test Status: ? Final ??Specimen Source: ?? Urine ??Specimen Quality: ??Adequate ??Result: ?No Growth REPORT COMMENT: FASTING:NO Test Performed at: [email or web address] ??[id number] YOSI LUNA MD Urine URINE SPECIMEN OBTAINED BY CLEAN CATCH PROCEDURE / Unknown 03/29/2024 10:54 AM ELIGIBILITY SUPERVISOR 03/29/2024 10:54 AM ELIGIBILITY SUPERVISOR Ellie Maloney FINANCIAL ANALYSIS CONSULTANT-JOURNEYMAN WELDER LAB - MICROBIOL OGY ORDERABLES Performing Organization Address [facility]/State/ZIP Co de Phone Number [address] [address] * URINALYSIS AUTO - POINT OF CARE (AMB) STL (03/10/2024 3:15 PM ELIGIBILITY SUPERVISOR) Only the most recent of2 resultswithin the [...] neg Negative [facility] Specific [place] UA POCT 1.005 1.002 - 1.030 [facility] Ketone UA neg Negative [facility] Bilirubin UA POCT neg Negative [facility] Glucose UA neg Negative [facility] Expiration Date 07/01/2025 [facility] Lot # [id number] [facility] QC Verified Yes Yes [facility] Urine URINE / Unknown 03/10/2024 3 :15 PM ELIGIBILITY SUPERVISOR Malinda Caba MD LAB - POINT OF CAR E ORDERABLES [facility] [address] [place] [address], [facility] [phone] * CT ABD/PELVIS STONE PROTOCOL (02/19/2024 8:26 AM ELIGIBILITY SUPERVISOR) Anatomical Region Laterality Modality Abdomen Computed Tomogra phy 02/19/2024 8:35 AM ELIGIBILITY SUPERVISOR Impressions 02/19/2024 8:40 AM ELIGIBILITY SUPERVISOR Impression: No obstruction or definite urinary stone seen at this time. > Interpreting Provider: Izabella Summers MD on 02/19/2024 8:40 AM Narrative 02/19/2024 8:40 AM ELIGIBILITY SUPERVISOR PROCEDURE: ??CT RENAL STONE, DATE/TIME OF EXAM: ??02/19/2024 8:26 AM, LOCATION ??[facility] INDICATION: R10.9: Unspecified abdominal pain ADDITIONAL [...] DATE/TIME OF EXAM: 02/19/2024 8:26 AM, LOCATION [facility] INDICATION: R10.9: Unspecified abdominal pain ADDITIONAL [...] REFLEX MICROSCOPIC REFLEX CULTURE (02/19/2024 8:20 AM ELIGIBILITY SUPERVISOR) Color UA Yellow Yellow, Straw 02/19/2024 8:30 AM ELIGIBILITY SUPERVISOR [facility] Clarity UA Turbid(A) Clear 02/19/2024 8:30 AM ELIGIBILITY SUPERVISOR [facility] Glucose UA Normal Normal 02/19/2024 8:30 AM ELIGIBILITY SUPERVISOR [facility] Bilirubin UA Negative Negative 02/19/2024 8:30 AM ELIGIBILITY SUPERVISOR [facility] Ketone UA Negative Negative 02/19/2024 8:30 AM [facility] Specific [place] UA 1.024 1.005 - 1.030 02/19/2024 8:30 AM [facility] Blood UA 2+(A) Negative 02/19/2024 8:30 AM [facility] pH UA 5.5 5.0 - 9.0 pH 02/19/2024 8:30 AM [facility] Protein UA Trace(A) Negative 02/19/2024 8:30 AM [facility] Urobilinogen UA Normal Normal mg/dL 02/19/2024 8:30 AM [facility] Nitrite UA Positive(A) Negative 02/19/2024 8:30 AM [facility] Leukocyte UA 500 SAYRA/uL(A) Negative 02/19/2024 8:30 AM [facility] RBC UA >100(A) 0 - 5 # /hpf 02/19/2024 8:30 AM [facility] WBC UA >100(A) 0 - 5 # /hpf 02/19/2024 8:30 AM [facility] Bacteria UA 2+(A) None Seen 02/19/2024 8:30 AM [facility] Squamous Epithelial Cells 11-20(A) 0 - 5 /hpf 02/19/2024 8:30 AM [facility] Mucus UA 1+ /LPF 02/19/2024 8:30 AM [facility] Budding Yeast Many(A) None seen /hpf 02/19/2024 8:30 AM [facility] Urine URINE SPECIMEN OBTAINED BY CLEAN CATCH PROCEDURE / Unknown Collection / Unknown 02/19/2024 8:20 AM ELIGIBILITY SUPERVISOR 02/19/2024 8:24 AM [facility] Dalila Salazar MD LAB - URINALYSIS ORD ERABLES [facility] [address] [address] * (ABNORMAL) CBC W AUTO DIFFERENTIAL (02/19/2024 8:20 AM ELIGIBILITY SUPERVISOR) WBC 5.7 4.0 - 10.7 x10E9/L 02/19/2024 8:26 AM [facility] RBC Count 4.28 3.90 - 5.20 x10E12/L 02/19/2024 8:26 AM [facility] Hemoglobin 13.1 11.9 - 15.8 g/dL 02/19/2024 8:26 AM [facility] Hematocrit 39.9 34.8 - 46.1 % 02/19/2024 8:26 AM [facility] MCV 93.2 80.0 - 98.0 fL 02/19/2024 8:26 AM [facility] MCH 30.6 26.7 - 33.6 pg 02/19/2024 8:26 AM [facility] MCHC 32.8 31.7 - 36.3 g/dL 02/19/2024 8:26 AM [facility] RDW-CV 13.4 11.3 - 14.8 % 02/19/2024 8:26 AM [facility] Platelet Count 272 150 - 420 x10E9/L 02/19/2024 8:26 AM [facility] MPV 11.6(H) 7.8 - 11.4 fL 02/19/2024 8:26 AM [facility] Neutrophil % 45.7 41.0 - 74.0 % 02/19/2024 8:26 AM [facility] Lymphocyte % 42.0 17.0 - 47.0 % 02/19/2024 8:26 AM [facility] Monocyte % 7.7 3.0 - 11.0 % 02/19/2024 8:26 AM [facility] Eosinophil % 3.0 0.0 - 7.0 % 02/19/2024 8:26 AM [facility] Basophil % 1.4 0.0 - 1.6 % 02/19/2024 8:26 AM [facility] Immature Granulocytes % 0.2 0.0 - 1.0 % 02/19/2024 8:26 AM [facility] Neutrophil Absolute 2.60 1.60 - 7.50 x10E9/L 02/19/2024 8:26 AM [facility] Lymphocyte Absolute 2.39 1.00 - 4.40 x10E9/L 02/19/2024 8:26 AM [facility] Monocyte Absolute 0.44 0.15 - 1.00 x10E9/L 02/19/2024 8:26 AM [facility] Eosinophil Absolute 0.17 0.00 - 0.60 x10E9/L 02/19/2024 8:26 AM [facility] Basophil Absolute 0.08 0.00 - 0.13 x10E9/L 02/19/2024 8:26 AM [facility] Blood BLOOD SPECIMEN / Unknown Venipuncture / Unknown 02/19/2024 8:20 AM ELIGIBILITY SUPERVISOR 02/19/2024 8:23 AM [facility] Dalila Salazar MD LAB - HEMATOLOGY ORD ERABLES [facility] [address] [place] [address] * (ABNORMAL) COMPREHENSIVE METABOLIC PANEL (02/19/2024 8:20 AM [facility]) Glucose 83 70 - 99 mg/dL 02/19/2024 8:42 AM [facility] Sodium 138 136 - 145 mmol/L 02/19/2024 8:42 AM [facility] Potassium 4.2 3.5 - 5.1 mmol/L 02/19/2024 8:42 AM [facility] Chloride 106 98 - 107 mmol/L 02/19/2024 8:42 AM [facility] CO2 25 22 - 29 mmol/L 02/19/2024 8:42 AM [facility] Calcium 9.5 8.4 - 10.4 mg/dL 02/19/2024 8:42 AM [facility] Anion Gap 7 6 - 16 mmol/L 02/19/2024 8:42 AM [facility] BUN 15 7 - 26 mg/dL 02/19/2024 8:42 AM [facility] Creatinine 0.94 0.57 - 1.11 mg/dL 02/19/2024 8:42 AM [facility] Alkaline Phosphatase 56 40 - 150 U/L 02/19/2024 8:42 AM [facility] ALT 17 0 - 55 U/L 02/19/2024 8:42 AM [facility] AST 28 5 - 34 U/L 02/19/2024 8:42 AM [facility] Protein Total 7.7 6.4 - 8.3 gm/dL 02/19/2024 8:42 AM ELIGIBILITY SUPERVISOR [facility] Albumin 4.3 3.4 - 5.0 gm/dL 02/19/2024 8:42 AM [facility] Bilirubin Total 0.7 0.2 - 1.2 mg/dL 02/19/2024 8:42 AM ELIGIBILITY SUPERVISOR [facility] eGFR by CKD-EPI 72(L) >=90 mL/min/1.7 3 m2 02/19/2024 8:42 AM ELIGIBILITY SUPERVISOR [facility] Blood BLOOD SPECIMEN / Unknown Venipuncture / Unknown 02/19/2024 8:20 AM ELIGIBILITY SUPERVISOR 02/19/2024 8:24 AM ELIGIBILITY SUPERVISOR Dalila Salazar MD LAB - CHEMISTRY IRIS CORTEZ [facility] [address] [address] * LIPASE BLOOD (02/19/2024 8:20 AM ELIGIBILITY SUPERVISOR) Lipase 32 <60 U/L 02/19/2024 8:42 AM ELIGIBILITY SUPERVISOR [facility] Blood BLOOD SPECIMEN / Unknown Venipuncture / Unknown 02/19/2024 8:20 AM ELIGIBILITY SUPERVISOR 02/19/2024 8:24 AM ELIGIBILITY SUPERVISOR Dalila Salazar MD LAB - CHEMISTRY IRIS CORTEZ [facility] [address] [address] * BLADDER SCAN - POINT OF CARE (AMB) (02/11/2024 3:03 PM ELIGIBILITY SUPERVISOR) mL [address] [facility] Urine URINE / Unknown 02/11/2024 3 :03 PM ELIGIBILITY SUPERVISOR Ellie Maloney FINANCIAL ANALYSIS CONSULTANT-JOURNEYMAN WELDER LAB - POINT OF CARE ORDERABLES [facility] [address] [place] [address] [phone] * URINE CULTURE (EXTERNAL RESULT ENTRY) (01/29/2024 10:53 AM CDT) Urine URINE / Unknown Historical Provider LAB - MICROBIOLOG Y ORDERABLES from Last 3 Months Advance Directives * Full Code (Latest Code Status on File) Date Activated Date Inactivated Comments 06/03/2023 7:09 PM 06/05/2023 5:07 PM Care Teams Executive Personal Assistant Relationship Specialty Start Date End Date Franck Cuadra MD [address] [place] [phone] PCP - General Family Medicine 08/07/22 Ellie Maloney, FINANCIAL ANALYSIS CONSULTANT-JOURNEYMAN WELDER [address] [place] [address] [address] [place] [id number] Nurse Practitioner Nurse Practitioner 02/11/24
--- OUTSIDE RECORDS SUMMARY | 2024-04-21 20:25 | XMS_ITS | Clinical Summary ---
Author Organization [facility] Address [address] [place] [address] Phone Care Team Providers Care Framing Specialist Name Role Phone Franck Cuadra MD Primary Care Provider [phone] Social History Tobacco Use Types Packs/Day Years Used Date Smoking Tobacco: Never Assessed Comments Unknown Sex and Gender Information Value Date Recorded Sex Assigned at Not on file Legal Sex Female 10:25 PM CDT Gender Identity Not on file Sexual Orientation Not on file Plan of Treatment Health Maintenance Due Date Last Done Comments Hepatitis C Virus (HCV) Screening 1969 TdaP Immunization 1969 Hepatitis B Immunization (1 of 3 - 19+ 3-dose series) 01/15/1988 Pap Smear 1990 Cervical Cancer Screening (CCS) 1999 HPV/Cotest 1999 Colonoscopy 2014 Colorectal Cancer Screening 2014 Cologuard 2019 Immunochemical Fecal Occult Blood 2019 Mammogram 2019 Pneumococcal Immunization (5 0+ years) (1 of 1 - PCV) 2019 Zoster Immunization (1 of 2) 2019 Influenza Immunization (#1) 2023 SARS-COV-2 Immunization ( - 2023- season) 2023 Respiratory Syncytial Virus (RSV) Immunization (Adult) (1 - 1-dose 75+ series) 01/15/2044 Meningococcal Immunization (ACWY) Aged Out No longer eligible based on patient's age to complete this topic Pneumococcal Immunization Combined Aged Out No longer eligible based on patient's age to complete this topic Rotavirus Immunization Aged Out No lo nger eligible based on patient's age to complete this topic Care Teams Framing Specialist Relationship Specialty Start Date End Date Franck Cuadra MD [address] [address] PCP - General Family Medicine 02/27/15
--- OUTSIDE RECORDS SUMMARY | 2024-04-21 20:25 | XMS_ITS | Patient Health Summary ---
Author Organization [facility] Address [address] [place] [address] Care Team Providers Care Bead Maker Name Role Phone Franck Cuadra MD Primary Care Provider [phone] Ellie Maloney APRN-ASSOCIATE PROFESSOR OF BIBLICAL STUDIES Unavailable [phone] Note from [facility],non-owned Affiliates and Associated Physician Practices is amultiple site organization consisting of ambulatory clinics and hospital sitesin [place], [place], [place] and [place]. This disclosure is being madepursuant to the Care Everywhere program and may not contain all information available regarding this patient. Last updated 17.[facility] Allergies * Adhesive Sensitivity(Other) -High Criticality * Ciprofloxacin(Rash) -Medium Criticality * Sulfa Drugs(Rash) -Medium Criticality * Hydrocortisone(Rash) -Medium Criticality,Inactive Medications * Be aware that medications may not be up to date on this document. Alwaysverify current medications with the patient. * zolpidem (Ambien) 5 MG tablet(Started 07/14/2022) Take 1 (one) tablet by mouth at bedtime * celecoxib (CeleBREX) 200 MG capsule(Started 07/07/2022) Take 1 (one) capsule by mouth once daily Held since 05/24/23 * ALPRAZolam (Xanax) 0.25 MG tablet(Started 04/24/2022) Take 1 (one) tablet by mouth 2 times daily as needed Anxiety Ok to take day of surgery * Multiple Vitamin (MULTIVITAMIN ADULT PO) Take 1 tablet by mouth once daily Held since 05/24/23 pre op * Mounjaro 2.5 MG/0.5ML injection(Started 12/02/2022) Inject 2.5 (two and one-half) mg subcutaneously every 21 days Held since last dose 05/14/23 * testosterone cypionate (Depo-Testosterone) 200 MG/ML injection(Started 05/15/2023) inject 0.5ml intramuscularly every 4 WEEKS * Estradiol 1.25 MG/1.25GM GEL(Started 05/13/2023) Ok to use day of surgery Reasons: Symptoms of Menopause * vitamin D, ergocalciferol, (Drisdol) 1.25 MG (85363 UT) capsule(Started 05/12/2023) Take 1 (one) capsule by mouth every 7 days Juan Thursday Held since 05/23/23 * estradiol (ESTRACE VAGINAL) 0.1 MG/GM vaginal cream(Started 02/11/2024) Insert 1 g into the vagina at bedtime Nightly for two weeks then twice per week (, ) 2 refills by 02/10/2025 * tamsulosin (Flomax) 0.4 MG capsule(Started 02/23/2024) Take 1 (one) capsule by mouth once daily 1 refill by 02/22/2025 * traMADol (Ultram) 50 MG tablet(Started 02/10/2024) Take 1 (one) tablet by mouth every 6 hours as needed pain * cephalexin (Keflex) 250 MG capsule(Started 03/31/2024) Take 1 (one) capsule by mouth once daily Ended Medications* nitrofurantoin monohyd macro crystals (Macrobid) 100 MG capsule(Started 03/11/2024)(Discontinued) Take 1 (one) capsule by mouth as directed After intimacy 3 refills by 03/11/2025 * cefdinir (Omnicef) 300 MG capsule(Started 03/21/2024)() Take 1 (one) capsule by mouth every 12 hours for 7 days * fluconazole (Diflucan) 150 MG tablet(Started 03/29/2024)() Take 1 (one) tablet by mouth once for 1 dose Active Problems Problem Noted Date Diagnosed Date [...] Comments Blood Pressure 111/72 03/10/2024 3:16 PM TEXTILE BROKER Pulse 74 03/10/2024 3:16 PM TEXTILE BROKER Temperature 36.4 ??C (97.5 ??F) 02/19/2024 8:05 AM CS T Respiratory Rate 16 02/19/2024 8:05 AM TEXTILE BROKER Oxygen Saturation 99% 03/10/2024 3:16 PM TEXTILE BROKER Inhaled Oxygen Concentration - - Weight 64 kg (141 lb 3.2 oz) 03/10/2024 3:16 PM TEXTILE BROKER Height 162.6 cm (5' 4 ) 03/10/2024 3:16 PM TEXTILE BROKER Body Mass Index 24.24 03/10/2024 3:16 PM TEXTILE BROKER Medical Devices Implanted Type Area Software Sales Manager Device Identifier Shelf Expiration Date Model / Serial / Lot Vistaseal 10 Ml Implanted:Qty: 1 on 06/03/2023 by Scott Malave DO at [facility] [place] Right: Hip 10/02/2024 [id number] / / [id number] Shell Actb 48mm Hip 3 Screw Hl Clstr Implanted:Qty: 1 on 06/03/2023 by Scott Malave DO at [facility] [place] Right: Hip [employer] 04/15/2028 702-04-48D / / [id number] Liner Actb Mdm D 38mm Cocr Hip 22.2mm Implanted:Qty: 1 on 06/03/2023 by Scott Malave DO at [facility] [place] Right: Hip [employer] 06/16/2026 626-00-38D / / [id number] Screw 6.5mm 25mm Lopro Hex Trdnt Ii Strl Implanted:Qty: 1 on 06/03/2023 by Scott Malave DO at [facility] [place] Right: Hip [employer] 06/10/2027 [id number] / / [id number] Ins Actb 38mm 22.2mm D Hip X3 Strl Lf Implanted:Qty: 1 on 06/03/2023 by Scott Malave DO at [facility] [place] Right: Hip [employer] 12/03/2027 [id number] / / [id number] Head Fem +3mm Ofst Tpr 22mm Hip Prm Cocr Implanted:Qty: 1 on 06/03/2023 by Scott Malave DO at [facility] [place] Right: Hip [employer] 02/06/2028 [id number] / / [id number] Impl Hip 36mm Nk Insg 4 Hpstm Hi Ofst Implanted:Qty: 1 on 06/03/2023 by Scott Malave DO at [facility] [place] Right: Hip [employer] 12/09/2027 [id number] / / [id number] Procedures * CULTURE URINE(Performed 03/29/2024) Performed for Recurrent UTI * URINALYSIS AUTO - POINT OF CARE (AMB) STL(Performed 03/10/2024) Performed for Recurrent UTI * CULTURE URINE(Performed 03/01/2024) Performed for Recurrent UTI * CT RENAL STONE(Performed 02/19/2024) Performed for Flank pain * URINALYSIS REFLEX MICROSCOPIC REFLEX CULTURE(Performed 02/19/2024) * LIPASE BLOOD(Performed 02/19/2024) * COMPREHENSIVE METABOLIC PANEL(Performed 02/19/2024) * CBC W AUTO DIFFERENTIAL(Performed 02/19/2024) * CULTURE URINE(Performed 02/19/2024) * URINALYSIS AUTO - POINT OF CARE (AMB) STL(Performed 02/11/2024) Performed for Recurrent UTI * BLADDER SCAN - POINT OF CARE (AMB)(Performed 02/11/2024) Performed for Recurrent UTI * CULTURE URINE(Performed 02/09/2024) Performed for Dysuria * URINE CULTURE (EXTERNAL RESULT ENTRY)(Performed 01/29/2024) * IMAGING/RADIOLOGY/XRAY RESULTS ORDER(Performed 06/08/2023) * COMPREHENSIVE METABOLIC PANEL(Performed 06/04/2023) Performed for S/P total right hip arthroplasty * CBC W AUTO DIFFERENTIAL(Performed 06/04/2023) Performed for S/P total right hip arthroplasty * XR PELVIS 1 OR 2VW(Performed 06/03/2023) Performed for Primary osteoarthritis of right hip * ID TOTAL HIP REPLACEMENT(Performed 06/03/2023) * PERIPHERAL BLOCK(Performed 06/03/2023) * XR CHEST 2VW(Performed 06/02/2023) Performed for Pre-op testing * PTT(Performed 06/02/2023) Performed for Pre-op testing * PT-INR(Performed 06/02/2023) Performed for Pre-op testing * COMPREHENSIVE METABOLIC PANEL(Performed 06/02/2023) Performed for Pre-op testing * CBC W AUTO DIFFERENTIAL(Performed 06/02/2023) Performed for Pre-op testing * URINALYSIS REFLEX TO MICROSCOPIC NO CULTURE(Performed 06/02/2023) Performed for Pre-op testing * EKG 12-LEAD(Performed 06/02/2023) Performed for Pre-op testing * US RETROPERITONEAL COMPLETE(Performed 08/19/2022) Performed for Recurrent UTI * BLADDER SCAN - POINT OF CARE (AMB)(Performed 08/07/2022) Performed for Recurrent UTI * URINALYSIS AUTO - POINT OF CARE (AMB) STL(Performed 08/07/2022) Performed for Recurrent UTI * CARDIAC EKG ORDER(Performed 11/24/2011) * MAGNESIUM BLOOD(Performed 11/08/2011) * TSH(Performed 11/08/2011) * CHEST PAIN PANEL(Performed 11/08/2011) * COMPREHENSIVE METABOLIC PANEL(Performed 11/08/2011) * CBC W AUTO DIFFERENTIAL(Performed 11/08/2011) * XR CHEST 1VW PORTABLE(Performed 11/08/2011) Performed for Chest pain * EKG 12-LEAD(Performed 11/08/2011) Performed for Chest pain Results * CULTURE URINE (03/29/2024 10:54 AM TEXTILE BROKER) Only the most recent of4 resultswithin the time period is included. Pathologist [facility] Culture QUEST Comment: ??CULTURE, URINE, ROUTINE ?Micro Number: ?[id number] ??Test Status: ? Final ??Specimen Source: ?? Urine ??Specimen Quality: ??Adequate ??Result: ?No Growth REPORT COMMENT: FASTING:NO Test Performed at: [facility] ??[id number] YOSI LUNA MD Urine URINE SPECIMEN OBTAINED BY CLEAN CATCH PROCEDURE / Unknown 03/29/2024 10:54 AM TEXTILE BROKER 03/29/2024 10:54 AM TEXTILE BROKER Ellie Maloney DIRECT SUPPORT PROFESSIONAL-ASSOCIATE PROFESSOR OF BIBLICAL STUDIES LAB - MICROBIOL OGY ORDERABLES [address] [address] * URINALYSIS AUTO - POINT OF CARE (AMB) STL (03/10/2024 3:15 PM TEXTILE BROKER) Only the most recent of3 resultswithin the time period is included. Pathologist [facility] Clarity UA POCT clear [facility] [...] neg Negative [facility] Specific [place] UA POCT 1.005 1.002 - 1.[address] [facility] Ketone UA neg Negative [facility] Bilirubin UA POCT neg Negative [facility] Glucose UA neg Negative [facility] Expiration Date 07/01/2025 [facility] Lot # [id number] [facility] QC Verified Yes Yes [facility] Urine URINE / Unknown 03/10/2024 3 :15 PM TEXTILE BROKER Malinda Caba MD LAB - POINT OF CAR E ORDERABLES [facility] [address] [place], [place] [address] [phone] * CT ABD/PELVIS STONE PROTOCOL (02/19/2024 8:26 AM TEXTILE BROKER) Anatomical Region Laterality Modality Abdomen Computed Tomogra phy 02/19/2024 8:35 AM TEXTILE BROKER Impressions 02/19/2024 8:40 AM TEXTILE BROKER Impression: No obstruction or definite urinary stone seen at this time. > Interpreting Provider: Izabella Summers MD on 02/19/2024 8:40 AM Narrative 02/19/2024 8:40 AM TEXTILE BROKER PROCEDURE: ??CT RENAL STONE, DATE/TIME OF EXAM: ??02/19/2024 8:26 AM, LOCATION ??[facility] INDICATION: R10.9: Unspecified abdominal pain ADDITIONAL CLINICAL [...] OF EXAM: 02/19/2024 8:26 AM, LOCATION [facility] INDICATION: R10.9: Unspecified abdominal pain ADDITIONAL CLINICAL [...] REFLEX MICROSCOPIC REFLEX CULTURE (02/19/2024 8:20 AM TEXTILE BROKER) Color UA Yellow Yellow, Straw 02/19/2024 8:30 AM TEXTILE BROKER [facility] Clarity UA Turbid(A) Clear 02/19/2024 8:30 AM TEXTILE BROKER [facility] Glucose UA Normal Normal 02/19/2024 8:30 AM TEXTILE BROKER [facility] Bilirubin UA Negative Negative 02/19/2024 8:30 AM TEXTILE BROKER [facility] Ketone UA Negative Negative 02/19/2024 8:30 AM TEXTILE BROKER [facility] Specific [place] UA 1.024 1.005 - 1.030 02/19/2024 8:30 AM TEXTILE BROKER [facility] Blood UA 2+(A) Negative 02/19/2024 8:30 AM TEXTILE BROKER [facility] pH UA 5.5 5.0 - 9.0 pH 02/19/2024 8:[address] [facility] Protein UA Trace(A) Negative 02/19/2024 8:[address] [facility] Urobilinogen UA Normal Normal mg/dL 02/19/2024 8:[address] [facility] Nitrite UA Positive(A) Negative 02/19/2024 8:[address] [facility] Leukocyte UA 500 SAYRA/uL(A) Negative 02/19/2024 8:[address] [facility] RBC UA >100(A) 0 - 5 # /hpf 02/19/2024 8:[address] [facility] WBC UA >100(A) 0 - 5 # /hpf 02/19/2024 8:[address] [facility] Bacteria UA 2+(A) None Seen 02/19/2024 8:[address] [facility] Squamous Epithelial Cells 11-20(A) 0 - 5 /hpf 02/19/2024 8:[address] [facility] Mucus UA 1+ /LPF 02/19/2024 8:[address] [facility] Budding Yeast Many(A) None seen /hpf 02/19/2024 8:[address] [facility] Urine URINE SPECIMEN OBTAINED BY CLEAN CATCH PROCEDURE / Unknown Collection / Unknown 02/19/2024 8:20 AM TEXTILE BROKER 02/19/2024 8:24 AM [facility] Dalila Salazar MD LAB - URINALYSIS ORD ERABLES [facility] [address] [place] [address] * (ABNORMAL) CBC W AUTO DIFFERENTIAL (02/19/2024 8:20 AM TEXTILE BROKER) Only the most recent of4 resultswithin the time period is included. WBC 5.7 4.0 - 10.7 x10E9/L 02/19/2024 8:[address] [facility] RBC Count 4.28 3.90 - 5.20 x10E12/L 02/19/2024 8:[address] [facility] Hemoglobin 13.1 11.9 - 15.8 g/dL 02/19/2024 8:[address] [facility] Hematocrit 39.9 34.8 - 46.1 % 02/19/2024 8:[address] [facility] MCV 93.2 80.0 - 98.0 fL 02/19/2024 8:[address] [facility] MCH 30.6 26.7 - 33.6 pg 02/19/2024 8:[address] [facility] MCHC 32.8 31.7 - 36.3 g/dL 02/19/2024 8:[address] [facility] RDW-CV 13.4 11.3 - 14.8 % 02/19/2024 8:[address] [facility] Platelet Count 272 150 - 420 x10E9/L 02/19/2024 8:[address] [facility] MPV 11.6(H) 7.8 - 11.4 fL 02/19/2024 8:[address] [facility] Neutrophil % 45.7 41.0 - 74.0 % 02/19/2024 8:[address] [facility] Lymphocyte % 42.0 17.0 - 47.0 % 02/19/2024 8:[address] [facility] Monocyte % 7.7 3.0 - 11.0 % 02/19/2024 8:[address] [facility] Eosinophil % 3.0 0.0 - 7.0 % 02/19/2024 8:[address] [facility] Basophil % 1.4 0.0 - 1.6 % 02/19/2024 8:[address] [facility] Immature Granulocytes % 0.2 0.0 - 1.0 % 02/19/2024 8:[address] [facility] Neutrophil Absolute 2.60 1.60 - 7.50 x10E9/L 02/19/2024 8:[address] [facility] Lymphocyte Absolute 2.39 1.00 - 4.40 x10E9/L 02/19/2024 8:[address] [facility] Monocyte Absolute 0.44 0.15 - 1.00 x10E9/L 02/19/2024 8:[address] [facility] Eosinophil Absolute 0.17 0.00 - 0.60 x10E9/L 02/19/2024 8:[address] [facility] Basophil Absolute 0.08 0.00 - 0.13 x10E9/L 02/19/2024 8:[address] [facility] Blood BLOOD SPECIMEN / Unknown Venipuncture / Unknown 02/19/2024 8:20 AM TEXTILE BROKER 02/19/2024 8:23 AM [facility] Dalila Salazar MD LAB - HEMATOLOGY ORD ERABLES [facility] [address] [place] [address] * (ABNORMAL) COMPREHENSIVE METABOLIC PANEL (02/19/2024 8:20 AM [facility]) Only the most recent of4 resultswithin the time period is included. Glucose 83 70 - 99 mg/dL 02/19/2024 8:[address] [facility] Sodium 138 136 - 145 mmol/L 02/19/2024 8:[address] [facility] Potassium 4.2 3.5 - 5.1 mmol/L 02/19/2024 8:[address] [facility] Chloride 106 98 - 107 mmol/L 02/19/2024 8:[address] [facility] CO2 25 22 - 29 mmol/L 02/19/2024 8:[address] [facility] Calcium 9.5 8.4 - 10.4 mg/dL 02/19/2024 8:[address] [facility] Anion Gap 7 6 - 16 mmol/L 02/19/2024 8:[address] [facility] BUN 15 7 - 26 mg/dL 02/19/2024 8:[address] [facility] Creatinine 0.94 0.57 - 1.11 mg/dL 02/19/2024 8:[address] [facility] Alkaline Phosphatase 56 40 - 150 U/L 02/19/2024 8:[address] [facility] ALT 17 0 - 55 U/L 02/19/2024 8:[address] [facility] AST 28 5 - 34 U/L 02/19/2024 8:[address] [facility] Protein Total 7.7 6.4 - 8.3 gm/dL 02/19/2024 8:[address] [facility] Albumin 4.3 3.4 - 5.0 gm/dL 02/19/2024 8:42 AM TEXTILE BROKER [facility] Bilirubin Total 0.7 0.2 - 1.2 mg/dL 02/19/2024 8:42 AM TEXTILE BROKER [facility] eGFR by CKD-EPI 72(L) >=90 mL/min/1.7 3 m2 02/19/2024 8:42 AM TEXTILE BROKER [facility] Blood BLOOD SPECIMEN / Unknown Venipuncture / Unknown 02/19/2024 8:20 AM TEXTILE BROKER 02/19/2024 8:24 AM TEXTILE BROKER Dalila Salazar MD LAB - CHEMISTRY IRIS CORTEZ [facility] [address] [place] [address] * LIPASE BLOOD (02/19/2024 8:20 AM TEXTILE BROKER) Lipase 32 <60 U/L 02/19/2024 8:42 AM TEXTILE BROKER [facility] Blood BLOOD SPECIMEN / Unknown Venipuncture / Unknown 02/19/2024 8:20 AM TEXTILE BROKER 02/19/2024 8:24 AM TEXTILE BROKER Dalila Salazar MD LAB - CHEMISTRY IRIS CORTEZ Performing Organization Address [facility]/ZIP Co de Phone Number [facility] [address] [place] [address] * BLADDER SCAN - POINT OF CARE (AMB) (02/11/2024 3:03 PM TEXTILE BROKER) Only the most recent of2 resultswithin the time period is included. mL [address] [facility] Urine URINE / Unknown 02/11/2024 3 :03 PM TEXTILE BROKER Ellie Maloney DIRECT SUPPORT PROFESSIONAL-ASSOCIATE PROFESSOR OF BIBLICAL STUDIES LAB - POINT OF CARE ORDERABLES [facility] [address] [place] [address] [phone] * URINE CULTURE (EXTERNAL RESULT ENTRY) (01/29/2024 10:53 AM CDT) Urine URINE / Unknown Historical Provider LAB - MICROBIOLOG Y ORDERABLES * IMAGING RADIOLOGY XRAY RESULTS ORDER (06/08/2023 9:43 PM CDT) Anatomical Region Laterality Modality Other Narrative 06/08/2023 9:43 PM CDT Ordered by an unspecified provider. Scanned Document IMAGING * XR PELVIS 1 OR 2VW (IN PACU) (06/03/2023 4:59 PM TEXTILE BROKER) Anatomical Region Laterality Modality Pelvis Radiographic Yudith ging 06/03/2023 5:37 PM TEXTILE BROKER Narrative 06/03/2023 5:38 PM TEXTILE BROKER PROCEDURE: ??XR PELVIS 1 OR 2VW DATE/TIME OF EXAM: ??06/03/2023 5:05 PM CLINICAL INFORMATION: None relevant/not provided if blank. Indication: M16.11: Unilateral primary osteoarthritis, right hip Chronic pelvic and right hip pain. COMPARISON: None FINDINGS: Right total hip arthroplasty in place. Postoperative soft tissue swelling and gas noted. No acute postsurgical complications. Prior L5-S1 fusion. > Interpreting Provider: Arpan Mark MD on 06/03/2023 5:38 PM Procedure Note Arpan Mark MD - 06/03/2023 PROCEDURE: XR PELVIS 1 OR 2VW DATE/TIME OF EXAM: 06/03/2023 5:05 PM CLINICAL INFORMATION: None relevant/not provided if blank. Indication: M16.11: Unilateral primary osteoarthritis, right hip Chronic pelvic and right hip pain. COMPARISON: None FINDINGS: Right total hip arthroplasty in place. Postoperative soft tissueswelling and gas noted. No acute postsurgical complications. Prior L5-S1 fusion. > Interpreting Provider: Arpan Mark MD on 06/03/2023 5:38 PM Scott Malave DO DIAGNOSTIC IMAGI NG ORDERABLES * Peripheral Nerve Block (06/03/2023 2:57 PM TEXTILE BROKER) Narrative Joo Huber MD - 06/03/2023 2:57 PM TEXTILE BROKER Joo Huber MD ? 06/03/2023 ??2:59 PM Peripheral ??Nerve Block ?? Procedure: Peripheral Nerve Block Patient Location: ??PACU Preprocedure Section: ?? Indications: at surgeon's request and postop pain management. Pre-anesthetic Checklist: Patient identified, IV Checked, Site examined and clear, Risks and benefits discussed, Surgical consent verified, Monitors and equipment, Time-out performed, Informed consent obtained, Pre-op evaluation done, Questions answered/anesthesia questions answered, Allergies reviewed and Removal hand/wrist jewelry Monitors: BP, Pulse Ox and EKG. Patient Condition: ??sedated, meaningful contact maintained throughout procedure Patient Position: supine Patient Sedated? ??Yes ? Sedation Type: ??mild ? Sedation Agents: ??fentaNYL (PF) (SUBLIMAZE) injection, 50 mcg midazolam (VERSED) injection, 2 mg Procedure Section ?? Laterality: right Block Performed: ??Fascia Iliaca Prep: ??Chloraprep Strerile Field: gloves, mask and hat/cap Skin localized with: lidocaine (XYLOCAINE) 1 % injection, 4 mL Needle Type: ??Echogenic insulated Needle Gauge: ??20 Needle Length: ??90 mm Needle Depth: ??2 cm Catheter?No Ultrasound Guided? ?? Yes ? Technique: ??in plane ? Visualization: ??Preliminary scan performed, Important anatomical structures identified, Needle tip visualized throughout the procedure, Target identified, No intraneural or intravascular puncture occurred, Ultrasound image in chart, Local visualized surrounding nerve on ultrasound and Hydrodissection utilized Injection was made incrementally with constant monitoring and aspirations every 5 mL's Injection Assessment: ?? Slow fractionated injection Block Agents or Additives used? Yes Block agents used: ropivacaine (NAROPIN) 5 MG/ML (0.5%) injection, 40 mL Procedure Tolerance: tolerated well, performed while the patient was sedated and no immediate complications Procedure Start Time: 06/03/2023 2:52 PM. Procedure End Time: 06/03/2023 2:55 PM. Procedure Total Time: 3 ??minutes. Staff Section ? Anesthesia Provider: Joo Huber MD, Performed the procedure Joo Huber MD GENERAL ANESTHESIA O RDERABLES * XR CHEST PA AND LATERAL (06/02/2023 1:06 PM TEXTILE BROKER) Anatomical Region Laterality Modality Chest Radiographic Yudith ging 06/02/2023 1:08 PM TEXTILE BROKER Impressions 06/02/2023 1:09 PM TEXTILE BROKER IMPRESSION: No acute cardiopulmonary abnormalities. > Interpreting Provider: Eliana Saleem MD on 06/02/2023 1:09 PM Narrative 06/02/2023 1:09 PM TEXTILE BROKER PROCEDURE: ??XR CHEST 2VW DATE/TIME OF EXAM: ??06/02/2023 1:06 PM CLINICAL INFORMATION: None relevant/not provided if blank. Indication: Z01.818: Encounter for other preprocedural examination Additional History: COMPARISON: November 08, 2011 FINDINGS: The heart size is normal. The pulmonary vascularity is within normal limits. The lungs are well expanded and clear. No pleural effusion is seen. Procedure Note Eliana Saleem MD - 06/02/2023 PROCEDURE: XR CHEST 2VW DATE/TIME OF EXAM: 06/02/2023 1:06 PM CLINICAL INFORMATION: None relevant/not provided if blank. Indication: Z01.818: Encounter for other preprocedural examination Additional History: COMPARISON: November 08, 2011 FINDINGS: The heart size is normal. The pulmonary vascularity is within normal limits. The lungs are well expanded and clear. No pleural effusion isseen. IMPRESSION: No acute cardiopulmonary abnormalities. > Interpreting Provider: Eliana Saleem MD on 06/02/2023 1:09 PM Scott Malave DO DIAGNOSTIC IMAGI NG ORDERABLES * (ABNORMAL) URINALYSIS REFLEX TO MICROSCOPIC NO CULTURE (06/02/2023 12:50 PM TEXTILE BROKER) Color UA Straw Straw, Yellow 06/02/2023 1:08 PM TEXTILE BROKER [facility] Clarity UA Clear Clear 06/02/2023 1:08 PM TEXTILE BROKER [facility] Glucose UA Negative Negative 06/02/2023 1:08 PM TEXTILE BROKER [facility] Bilirubin UA Negative Negative 06/02/2023 1:08 PM TEXTILE BROKER [facility] Ketone UA Negative Negative 06/02/2023 1:08 PM TEXTILE BROKER [facility] Specific [place] UA 1.003(L) 1.005 - 1.030 06/02/2023 1:08 PM TEXTILE BROKER [facility] Blood UA Negative Negative 06/02/2023 1:[address] [facility] pH UA 6.0 5.0 - 8.0 pH 06/02/2023 1:08 PM TEXTILE BROKER [facility] Protein UA Negative Negative 06/02/2023 1:08 PM [employer] [facility] Urobilinogen UA Negative Negative mg/dL 06/02/2023 1:08 PM [employer] [facility] Nitrite UA Negative Negative 06/02/2023 1:08 PM [employer] [facility] Leukocyte UA Negative Negative 06/02/2023 1:08 PM [employer] [facility] Urine Microscopy Urine microscopy not indicated 06/02/2023 1:[address] [facility] Urine URINE SPECIMEN OBTAINED BY CLEAN CATCH PROCEDURE / Unknown Collection / Unknown 06/02/2023 12:50 PM [employer] 06/02/2023 12:56 PM [employer] Narrative [facility] [facility] - 06/02/2023 1:08 PM TEXTILE BROKER Scott Malave DO LAB - URINALYSIS ORDERABLES [facility] [address] [address] * PTT (06/02/2023 12:50 PM TEXTILE BROKER) PTT 32.1 23.0 - 38.4 sec 06/02/2023 1:09 PM TEXTILE BROKER [facility] Blood BLOOD SPECIMEN / Unknown Venipuncture / Unknown 06/02/2023 12:50 PM TEXTILE BROKER 06/02/2023 12:57 PM TEXTILE BROKER Narrative [facility] - 06/02/2023 1:09 PM TEXTILE BROKER Heparin Therapeutic Range for PTT: ??69.0 - 110.0 seconds. Scott Malave DO LAB - COAGULATIO N ORDERABLES [facility] [address] [address] * PT-INR (06/02/2023 12:50 PM TEXTILE BROKER) PT 13.0 12.1 - 14.8 sec 06/02/2023 1:09 PM TEXTILE BROKER [facility] INR 1.0 0.9 - 1.1 06/02/2023 1:09 PM TEXTILE BROKER [facility] Blood BLOOD SPECIMEN / Unknown Venipuncture / Unknown 06/02/2023 12:50 PM TEXTILE BROKER 06/02/2023 12:57 PM TEXTILE BROKER Narrative [facility] - 06/02/2023 1:09 PM TEXTILE BROKER Conventional Warfarin Anticoagulant Therapy: INR Reference Range: ??2.0-3.0 Intensive Warfarin Anticoagulant Therapy: INR Reference Range: ? 2.5-3.5 Scott Malave DO LAB - COAGULATIO N ORDERABLES [facility] [address] [place] [address] * EKG 12-LEAD (06/02/2023 12:02 PM TEXTILE BROKER) Only the most recent of2 resultswithin the time period is included. Ventricular Rate 60 BPM [facility] Atrial Rate 60 BPM [facility] P-R Interval 190 ms [facility] QRS Duration ms 82 ms [facility] Q-T Interval ms 416 ms [facility] QTC Calculation (Bezet) 416 ms [facility] Calculated P [place] 61 degrees [facility] MUSE Calculated R [place] 26 degrees [facility] MUSE Calculated T [place] 52 degrees [facility] MUSE Interpretation EKG Normal sinus rhythm Normal ECG When compared with ECG of 08-NOV-2011 16:06, Premature ventricular complexes are no longer Present Vent. rate has decreased BY ??36 BPM Confirmed by KATRIN KOO MD ([id number]) on 06/02/2023 4:32:51 PM [facility] 06/02/2023 12:0 2 PM TEXTILE BROKER 06/02/2023 4:32 PM TEXTILE BROKER Scott Malave DO ECG ORDERABLES [facility] * US RETROPERITONEAL COMPLETE (08/19/2022 3:20 PM CDT) Anatomical Region Laterality Modality Abdomen Ultrasound 08/19/2022 5:24 PM CDT Impressions 08/19/2022 5:30 PM CDT IMPRESSION: No hydronephrosis. Debris in the urinary bladder. > Interpreting Provider: Tay Meyer MD on 08/19/2022 5:30 PM Narrative 08/19/2022 5:30 PM CDT Renal Ultrasound INDICATION: Recurrent UTI. Kidney stones. TECHNIQUE: Grayscale and color images of the kidneys and bladder were obtained FINDINGS: Both kidneys are within normal limits for size and no hydronephrosis or stone are seen. Renal echogenicity is normal. The right kidney measures 10.1 x 3.9 x 4.9 cm and left kidney 10.4 x 5.7 x 5.1 cm. The urinary bladder contains debris. Prevoid bladder volume is 131 cc and post void approximately 20 cc. Bilateral ureteral jets are identified. Procedure Note Tay Meyer MD - 08/19/2022 Renal Ultrasound INDICATION: Recurrent UTI. Kidney stones. TECHNIQUE: Grayscale and color images of the kidneys and bladder were obtained FINDINGS: Both kidneys are within normal limits for size and no hydronephrosis or stone are seen. Renal echogenicity is normal. The right kidney measures 10.1 x 3.9 x 4.9 cm and left kidney 10.4 x 5.7 x 5.1 cm. The urinary bladder contains debris. Prevoid bladder volume is 131 ccand post void approximately 20 cc. Bilateral ureteral jets are identified. IMPRESSION: No hydronephrosis. Debris in the urinary bladder. > Interpreting Provider: Tay Meyer MD on 08/19/2022 5:30 PM Malinda Caba MD US ORDERABLES * CARDIAC EKG ORDER (11/24/2011 11:02 AM CDT) Narrative Transcriptions Document, Scanned - 11/24/2011 11:02 AM CDT Scanned Document CARDIAC SERVICES ORD ERABLES * CHEST PAIN PANEL (11/08/2011 4:30 PM CDT) CK 86 35 - 232 U/L [facility] CK-MB < 0.5 SEE BELOW ng/dl [facility] Comment: <5.10 Negative 5.10-10.0 Intermediate >10.0 Positive Troponin I < 0.015 SEE BELOW ng/ml [facility] Comment: <0.100 Normal 0.100-0.999 Indeterminate >0.999 Positive BLOOD SPECIMEN / Unknown 11/08/2011 4:30 PM CDT 11/08/2011 4:36 PM CDT Haris Reachoo LAB - CHEMISTRY [employer] Performing Organization Address [facility] Co de Phone Number [facility] [address] [place] [address] * MAGNESIUM BLOOD (11/08/2011 4:30 PM CDT) Pathologist [facility] Magnesium 2.1 1.6 - 2.6 mg/dl [facility] Blood specimen (specimen) BLOOD SPECIMEN / Unknown 11/08/2011 4:30 PM CDT 11/08/2011 4:36 PM CDT Haris [employer]ALK [employer] - CHEMISTRY [employer] Performing Organization Address [facility] Co de Phone Number [facility] [address] [place] [address] * TSH (11/08/2011 4:30 PM CDT) Pathologist [facility] TSH 1.18 0.358 - 3.74 uIU/ml [facility] Blood specimen (specimen) BLOOD SPECIMEN / Unknown 11/08/2011 4:30 PM CDT 11/08/2011 4:36 PM CDT [employer] LAB - CHEMISTRY [employer] Performing Organization Address [facility] Co de Phone Number [facility] [address] [place] [address] * XR CHEST 1VW PORTABLE (11/08/2011 4:26 PM CDT) Anatomical Region Laterality Modality Chest Radiographic Yudith ging 11/08/2011 4:31 PM CDT Impressions 11/08/2011 4:31 PM CDT Normal AP chest x-ray. Narrative 11/08/2011 4:31 PM CDT PORTABLE AP CHEST INDICATION: Chest pain FINDINGS: Single AP view of the chest shows the lungs to be expanded and clear. The cardiac and mediastinal silhouettes and pulmonary vascularity are within normal limits. Procedure Note Izabella Summers MD - 11/08/2011 PORTABLE AP CHEST INDICATION: Chest pain FINDINGS: Single AP view of the chest shows the lungs to be expanded and clear. The cardiac and mediastinal silhouettes and pulmonary vascularity are within normal limits. IMPRESSION Normal AP chest x-ray. Haris Mora DO DIAGNOSTIC IMAGING O [facility] Care Teams Bead Maker Relationship Specialty Start Date End Date Franck Cuadra MD [address] [place] [id number] PCP - General Family Medicine 08/07/22 Ellie Maloney, DIRECT SUPPORT PROFESSIONAL-ASSOCIATE PROFESSOR OF BIBLICAL STUDIES [address] [facility] [place] [id number] Nurse Practitioner Nurse Practitioner 02/11/24
--- OUTSIDE RECORDS SUMMARY | 2024-04-21 20:25 | XMS_ITS | Continuity of Care Document ---
Author Organization [facility] Address [address] [place] [address] Phone Care Team Providers Care Clinic Licensed Practical Nurse Name Role Phone Tim Dailey PA-C Unavailable Unavailabl e Allergies, Adverse Reactions, Alerts Substance Reaction Status Criticality Sulfa (Sulfonamide Antibiotics) Active No Information ciprofloxacin Active No Information Medications Medication Instructions Dosage Effective Dates (start - stop) Status Comments amoxicillin 500 mg tablet take 4 tablets by oral route one hour prior to dental procedure - Active Medrol (Bhanu) 4 mg tablets in a dose pack TAKE DIRECTED - Active tramadol 50 mg tablet - Active Ambien 5 mg tablet - Active Procedures Procedure Date X-RAY HIP UNI W PELVIS 2-3 VIEWS 2023 OFFICE/OUTPATIENT VISIT EST X-RAY HIP UNI W PELVIS 2-3 VIEWS 2023 POSTOP FOLLOW-UP VISIT POSTOP FOLLOW-UP VISIT X-RAY HIP UNI W PELVIS 2-3 VIEWS 2023 POSTOP FOLLOW-UP VISIT TOTAL HIP ARTHROPLASTY OFFICE/OUTPATIENT VISIT EST OFFICE/OUTPATIENT VISIT EST MRI JT Lower w/ Contrast X-RAY HIP UNI W PELVIS 2-3 VIEWS 2022 OFFICE/OUTPATIENT VISIT NEW Advance Directives Directive Yes / No Effective Date File Name Other Directive No N/A N/A WARNING:The information contained in this section is historical and is provided for information only and does not constitute a legal document or any assurance that the information is still accurate. Please verify the information with the byrne of the legal document before using it for clinical purposes. Encounters Encounter Description Practice Location Reason(s) For Visit Diagnoses Date Provider Providers Copied on Encounter OFFICE/OUTPA TIENT VISIT EST [facility], [address], [place], [address], [place] tel:[phone] [facility] [place] Status post right hip replacementPr imary osteoarthriti s of right hip Sep- 0 4 Ashlie Dumont. [address], [place], [place], [address], [place]. tel:[phone] Referring Provider: Franck Kumar, [address], [place], [address]. tel:[phone] [facility], [address], [place], [address], [place] tel:[phone] [facility] [place] Status post right hip replacement 4 Pennie Steel. [address], [place], [address], [place]. tel:[phone] Referring Provider: Franck Kumar, [address], [place], [address]. tel:[phone] [facility], [address], [place], [address], [place] tel:[phone] [facility] [place] Status post right hip replacementEn counter for other orthopedic aftercarePrim renata osteoarthriti s of right hip Jun- 4 Pennie Steel. [address], [place], [address], [place]. tel:[phone] Referring Provider: Franck Kumar, [address], [place], [address]. tel:[phone] [facility], [address], [place], [address], [place] tel:[phone] [facility] [place] Status post right hip replacementPr imary osteoarthriti s of right hipEncounter for other orthopedic aftercare May- 4 Pennie Steel. [address], [place], [address], [place]. tel:[phone] Referring Provider: Franck Kumar, [address], [place], [address]. tel:[phone] [facility], [address] [facility] [address], [place], [address], [place] tel:[phone] [facility] Unilateral primary osteoarthriti s, right hip May- 4 Ananda Truonger . [address], [place], [place], [address]. tel:[phone] [facility], [address] [facility] [address], [place], [address], [place] tel:[phone] [facility] Primary osteoarthriti s of right hip Apr- 4 Ananda Chavez . [address], [place], [place], [address]. tel:[phone] [facility], [address], [place], [address], [place] tel:[phone] [facility] Primary osteoarthriti s of right hipAcetabular labrum tear, right, sequelaEncoun ter for other preprocedural examination Apr- 4 Ananda Chavez . [address] [facility] [address], [place], [place], [address]. tel:[phone] OFFICE/OUTPA TIENT VISIT EST [facility], [address], [place], [address], [place] tel:[phone] [facility] [place] Primary osteoarthriti s of right hipAcetabular labrum tear, right, sequela 4 Pennie Steel. [address], [place], [address], [place]. tel:[phone] Referring Provider: Franck Kumar, [address], [place], [address]. tel:[phone] OFFICE/OUTPA TIENT VISIT EST [facility], [address], [place], [address], [place] tel:[phone] [facility] [place] Acetabular labrum tear, right, sequelaPrimar y osteoarthriti s of right hip 3 Ananda Scott . [address], [place], [place], [address]. tel:[phone] Referring Provider: Franck Kumar, [address], [place], [address]. tel:[phone] [facility], [address], [place], [address], [place] tel:[phone] [facility] Other sprain of right hip, initial encounter 3 No Information Referring Provider: Scott Malave, [address], [place], [address]. tel:[phone] OFFICE/OUTPA TIENT VISIT NEW [facility], [address], [place], [address], [place] tel:[phone] [facility] [place] Right hip painPrimary osteoarthriti s of right hipTear of right acetabular labrum, initial encounter 3 Ananda Chavez . [address], [place], [place], [address]. tel:[phone] Referring Provider: Franck Kumar, [address], [place], [address]. tel:[phone] Family History Family Member Type Diagnosis Age At Onset Mother Problem Hypertension Father Problem Hypertension Father Problem Cancer, lung Payers Payer name Insurance type Covered democrat ID Authoriza kim(s) Blue Access PPO E2 OT [id number] Social History Type Description Quantity Date Captured Comments Alcohol Use Details Unknown Caffeine Use Details Unknown Tobacco Use Status Current non-smoker Smoking Status Never smoker Sex Female Chief Complaint And Reason For Visit No Information Reason For Referral Reason For Referral No Information Plan Of Treatment Date Type Action Status Referral Ordered: X-RAY HIP UNI W PELVIS 2-3 VIEWS RT ordered Referral Ordered: CT Lower Extr w/o Contrast RT hip Appointment date/timeframe: 05/26/2023 ordered Referral Ordered: MRI JT Lower w/ Contrast RT hip Appointment date/timeframe: 01/27/2023 ordered Referral Ordered: X-RAY HIP UNI W PELVIS 2-3 VIEWS RT hip ordered Appointment Gris Sam Scheduled History Of Present Illness Encounter Date Complaint History Of Prese nt Illness No Information Functional Status Date Functional Assessmen t No Information Instructions Date Instruction Additional Infor mation No Information Assessments Type Assessment Date assessment Status post right hip replacemen t assessment Primary osteoarthritis of right hip Patient Care Teams Name Effective Dates (start - stop) Status Members No Information
--- OUTSIDE RECORDS SUMMARY | 2024-04-21 20:34 | XMS_ITS | Continuity of Care Document ---
Author Organization [facility] Address [address] [place] [address] Phone Care Team Providers Care Lathe Tender Name Role Phone Rivera Campos MD Unavailable Unavailable Procedures Procedure Date LOWER EXTREM CAT W/O CONTRAST Advance Directives Directive Yes / No Effective Date File Name No Information Encounters Encounter Description Practice Location Reason(s) For Visit Diagnoses Date Provider Providers Copied on Encounter [facility], [address], [place], [place], [id number], [place] tel:[phone] [facility] No Information Beth Stafford. [address] , [place], [place], [address], [place]. tel:[phone] Referring Provider: Scott Malave, [address], [place], [address]. tel:[phone] Family History Family Member Type Diagnosis Age At Onset No Information Payers Payer name Insurance type Covered alliance party ID Authoriza tion(s) BCBS ACCESS CHOICE BL [id number] Social History Type Description Quantity Date Captured Comments Sex Female Smoking Status No Information Chief Complaint And Reason For Visit No Information Reason For Referral Reason For Referral No Information History Of Present Illness Encounter Date Complaint History Of Prese nt Illness No Information Functional Status Date Functional Assessmen t No Information Instructions Date Instruction Additional Infor mation No Information Assessments Type Assessment Date No Information Patient Care Teams Name Effective Dates (start - stop) Status Members No Information
--- OUTSIDE RECORDS SUMMARY | 2024-04-21 20:34 | XMS_ITS | Continuity of Care Document ---
Author Organization [facility] Address [address] [place] [address] Phone Care Team Providers Care Endless Bed Drum Sander Name Role Phone Tim Dailey PA-C Unavailable [...] OFFICE/OUTPA TIENT VISIT EST [facility], [address], [place], [address], [place] tel:[phone] [facility] [place] Status post right hip replacementPr imary osteoarthriti s of right hip Sep- 0 4 Ashlie Dumont. [address], [place], [place], [address], [place]. tel:[phone] Referring Provider: Franck Kumar, [address], [place], [address]. tel:[phone] [facility], [address], [place], [address], [place] tel:[phone] [facility] [place] Status post right hip replacement 4 Pennie Steel. [address], [place], [address], [place]. tel:[phone] Referring Provider: Franck Kumar, [address], [place], [address]. tel:[phone] [facility], [address], [place], [address], [place] tel:[phone] [facility] [place] Status post right hip replacementEn counter for other orthopedic aftercarePrim renata osteoarthriti s of right hip Jun- 4 Pennie Steel. [address], [place], [address], [place]. tel:[phone] Referring Provider: Franck Kumar, [address], [place], [address]. tel:[phone] [facility], [address], [place], [address], [place] tel:[phone] [facility] [place] Status post right hip replacementPr imary osteoarthriti s of right hipEncounter for other orthopedic aftercare May- 4 Pennie Steel. [address], [place], [address], [place]. tel:[phone] Referring Provider: Franck Kumar, [address], [place], [address]. tel:[phone] [facility], [address] [facility] [address], [place], [address], [place] tel:[phone] [facility] Unilateral primary osteoarthriti s, right hip May- 4 Ananda Truonger . [address], [place], [place], [address]. tel:[phone] [facility], [address] [facility] [address], [place], [address], [place] tel:[phone] [facility] Primary osteoarthriti s of right hip Apr- 4 Ananda Chavez . [address], [place], [place], [address]. tel:[phone] [facility], [address] [facility] [address] [address], [place], [address], [place] tel:[phone] [facility] Primary osteoarthriti s of right hipAcetabular labrum tear, right, sequelaEncoun ter for other preprocedural examination Apr- 4 Ananda Chavez . [address] [facility] [address], [place], [place], [address]. tel:[phone] OFFICE/OUTPA TIENT VISIT EST [facility], [address], [place], [address], [place] tel:[phone] [facility] [place] Primary osteoarthriti s of right hipAcetabular labrum tear, right, sequela 4 Pennie Steel. [address], [place], [address], [place]. tel:[phone] Referring Provider: Franck Kumar, [address], [place], [address]. tel:[phone] OFFICE/OUTPA TIENT VISIT EST [facility], [address], [place], [address], [place] tel:[phone] [facility] [place] Acetabular labrum tear, right, sequelaPrimar y osteoarthriti s of right hip 3 Ananda Scott . [address], [place], [place], [address]. tel:[phone] Referring Provider: Franck Kumar, [address], [place], [address]. tel:[phone] [facility], [address], [place], [address], [place] tel:[phone] [facility] Other sprain of right hip, initial encounter 3 No Information Referring Provider: Scott Malave, [address], [place], [address]. tel:[phone] OFFICE/OUTPA TIENT VISIT NEW [facility], [address], [place], [address], [place] tel:[phone] [facility] [place] Right hip painPrimary osteoarthriti s of right hipTear of right acetabular labrum, initial encounter 3 Ananda Chavez . [address], [place], [place], [address]. tel:[phone] Referring Provider: Franck Kumar, [address], [place], [address]. tel:[phone] Family History Family Member Type Diagnosis Age At Onset Mother Problem Hypertension Father Problem Hypertension Father Problem Cancer, lung Payers Payer name Insurance type Covered alliance party ID Authoriza kim(s) Blue Access PPO E2 OT [id number] Social History Type Description Quantity Date Captured [...]
== END 2024-04-19 23:32 | disposition home or self-care (01) ==
PROVIDERS: PCP Family Medicine; Visit Provider Surgery Plastic and Reconstructive Surgery
PROC: (CPT 19325; principal; 2024-04-19 20:45)
DX: L76.32 Postprocedural hematoma of skin and subcutaneous tissue following other procedure (principal); N64.89 Other specified disorders of breast; E78.5 Hyperlipidemia, unspecified; F41.9 Anxiety disorder, unspecified; Z79.85 Long-term (current) use of injectable non-insulin antidiabetic drugs; Z79.891 Long term (current) use of opiate analgesic; Z98.890 Other specified postprocedural states; Z98.82 Breast implant status; Z98.1 Arthrodesis status; Z87.891 Personal history of nicotine dependence; Z80.9 Family history of malignant neoplasm, unspecified; Z82.49 Family history of ischemic heart disease and other diseases of the circulatory system; Y83.8 Other surgical procedures as the cause of abnormal reaction of the patient, or of later complication, without mention of misadventure at the time of the procedure
CPT/HCPCS: 19325; 19328; A9270; J0690; J1100; J2003; J2004; J2371; J2405; J2704; J3010; J7120